=== PATIENT | male | born 1965 | race Caucasian/White ===

== ENCOUNTER 2021-07-06 13:50 | Outpatient (CLI) | payer OTHER, SELFPAY ==
--- NOTE | ~2021-07-06 | XR_ITS ---
EXAMINATION: XR foot LT min 3V EXAM DATE: 07/06/2021 14:18 INDICATION: Pain in L foot and B/L toes,Rt Foot Worse,X1mo. TECHNIQUE: Left foot dorsoplantar, lateral and oblique projections obtained and reviewed. Comparison is made to prior examination from 10/27/2018. FINDINGS: Left metatarsal bones unremarkable. There are no bony erosions identified. There is mild 1st metatarsophalangeal joint primary osteoarthritis. Small posterior calcaneal spur. There are no acute fractures or dislocations identified. There is no subcutaneous gas. The soft tissue is unrema rkable. There are no radiopaque foreign bodies. IMPRESSION: Mild left 1st MTP osteoarthritis. Reviewed, dictated and finalized at location A. ERCIAL ENGINEER
--- NOTE | ~2021-07-06 | XR_ITS ---
EXAMINATION: XR foot RT min 3V EXAM DATE: 07/06/2021 14:18 INDICATION: Pain in L foot and B/L toes,Rt Foot Worse,X1mo TECHNIQUE: Right foot dorsoplantar, lateral and oblique projections obtained and reviewed. Correlati on is made to contralateral foot same date. Comparison is made to prior examination from 05/18/2013. FINDINGS: Right metatarsal bones unremarkable. There are no bony erosions identified. There are no a cute fractures or dislocations identified. There is no subcutaneous gas. The soft tissue is unremar kable. There are no radiopaque foreign bodies. IMPRESSION: 1. Unremarkable right foot exam. Reviewed, dictated and finalized at location A. DIVER
== END 2021-07-06 13:51 | disposition home or self-care (01) ==
PROVIDERS: PCP Family Medicine; Visit Provider Family Medicine
DX: M79.674 Pain in right toe(s) (principal); M79.675 Pain in left toe(s)
CPT/HCPCS: 73630

== ENCOUNTER 2021-08-19 12:47 | Outpatient (CLI) | payer OTHER, SELFPAY ==
--- NOTE | ~2021-08-19 | US_ITS ---
EXAMINATION: US aorta DATE: 08/19/2021 13:14 INDICATION: Abdominal aortic aneurysm without rupture TECHNIQUE: Grayscale, color Doppler, and pulsed Doppler images of the aorta and common iliac arteries were obtained. COMPARISON: None. FINDINGS: The proximal aorta measures 3.0 cm. The mid aorta measures 3.2 cm. The distal aorta measures 3.0 cm. The right common iliac artery measures 1.4 cm. The left common iliac artery measures 1.5 cm. IMPRESSION: 1. Normal caliber abdominal aorta. Reviewed, dictated and finalized at location B.
== END 2021-08-19 12:48 | disposition home or self-care (01) ==
LOC: CHSIMG 12:51
PROVIDERS: PCP Family Medicine; Visit Provider Family Medicine
DX: I71.4 Abdominal aortic aneurysm, without rupture (principal)
CPT/HCPCS: 76775

== ENCOUNTER 2021-10-19 16:31 | Emergency (ER) | payer MEDICARE, MEDICAID, SELFPAY ==
[2021-10-19] VITALS (45 sets, daily range): BP systolic 125–166; BP diastolic 78–106; PULSE 69–102; RESP 10–20; TEMP 36.2; O2SAT 94–100
--- NOTE | ~2021-10-19 | CT_ITS ---
EXAMINATION:CT diagnostic chest wo con DATE: 10/19/2021 19:53 INDICATION: Posterior chest pain. Shortness of breath. TECHNIQUE: Computed tomography (CT) of the chest was performed without intravenous contrast. Automate d exposure control and iterative reconstruction technique were employed. The dose-length product (DLP ) was 259.51 mGy-cm. COMPARISON: None. FINDINGS: A calcified left lung nodule is consistent with old granulomatous disease. No pleural effus ion. The heart size is normal. There are coronary artery calcifications. No pericardial effusion. The re is ectasia of ascending aorta measuring 4.3 cm. There is diffuse hepatic steatosis. The gallbladde r is distended. There is mild thoracic spondylosis. There is mild chronic anterior wedging of 2 midth oracic vertebral bodies. IMPRESSION: 1. Gallbladder distention, which may be seen with fasting. Correlate with physical exam to exclude ac pratibha cholecystitis. 2. Ectasia of ascending aorta measuring 4.3 cm. Reviewed, dictated and finalized at location E. IMPRESSION: 1. Gallbladder distention, which may be seen with fasting. Correlate with physi praveen exam to exclude acute cholecystitis. 2. Ectasia of ascending aorta measuring 4.3 cm.
--- NOTE | ~2021-10-19 | XR_ITS ---
XR chest 1V portable DATE: 10/19/2021 17:21 INDICATION: Shortness of breath TECHNIQUE: Portable upright AP chest on 10/19/2021 at 1726 hours COMPARISON: 07/30/2016 PA and lateral chest FINDINGS: Borderline heart size. Is aortic tortuosity. No hilar or mediastinal enlargement. No pulmonary infiltrate or consolidation, pleural effusion or pulmonary vascular congestion or pneumo thorax is detected. IMPRESSION: No active pulmonary disease Reviewed, dictated and finalized at location A. IMPRESSION: No active pulmonary disease
--- NOTE | 2021-10-19 16:49 | ED.CHESTPAIN ---
HPI - Chest Pain General Chief Complaint: Shortness of Breath/Dyspnea Stated Complaint: trouble breathing Time Seen by Provider: 10/19/21 16:49 Source: patient Mode of arrival: ambulatory Limitations: no limitations History of Present Illness HPI narrative: 56-year-old male with a history hypertension ground, HASEEB, MARLEE, CVA, central pain syndrome, GERD, cervical radiculopathy presented to his doctor's office for -- left-sided chest/ left posterior chest pain since last night. Pain worse on deep breathing. Patient has a history of negative cardiac catheterization 2 years ago. -- shortness of breath since last night -- chronic right-sided pain he was transferred from the doctor's office to the ER further management. MD complaint: chest pain Onset (ago): day(s) ( Started last night) Timing of current episode: episodic Prior episodes: No Onset: during rest Pain location: left chest Pain radiation: none Severity: moderate Quality: aching Relieving factors: nothing Exacerbating factors: inspiration Treatment prior to arrival: none Risk Factors Coronary artery disease risk factors: hypertension Thoracic aortic dissection risk factors: longstanding hypertension Related Data Home Medications Medication Instructions Recorded Confirmed Advair Diskus 1 puff PO BID 10/19/21 10/19/21 allopurinol 300 mg tablet 1 tablet PO DAILY 10/19/21 10/19/21 alprazolam 0.5 mg tablet 1 tablet PO TID PRN Anxiety 10/19/21 10/19/21 atenolol 100 mg tablet 1 tablet PO DAILY 10/19/21 10/19/21 carbamazepine 400 mg 400 mg PO BID 10/19/21 10/19/21 tablet,extended release,12 hr cholecalciferol (vitamin D3) 25 25 mcg PO BID 10/19/21 10/19/21 mcg (1,000 unit) capsule clopidogrel 75 mg tablet 1 tablet PO DAILY 10/19/21 10/19/21 cyanocobalamin (vitamin B-12) 2,500 mcg PO DAILY 10/19/21 10/19/21 2,000 mcg tablet duloxetine 30 mg capsule,delayed 30 mg PO BID 10/19/21 10/19/21 release sprinkle hydrochlorothiazide 25 mg tablet 1 tablet PO DAILY 10/19/21 10/19/21 hydrocodone 7.5 mg-acetaminophen 1 - 2 tablet PO Q4-6H PRN Pain 10/19/21 10/19/21 325 mg tablet minoxidil 10 mg tablet 2 tablet PO BID 10/19/21 10/19/21 nortriptyline 50 mg capsule 100 mg PO HS 10/19/21 10/19/21 oxycodone 80 mg tablet,crush 80 mg PO Q12H 10/19/21 10/19/21 resistant,extended release 12 hr pantoprazole 40 mg tablet,delayed 1 tablet PO DAILY 10/19/21 10/19/21 release rosuvastatin 20 mg tablet 1 tablet PO HS 10/19/21 10/19/21 sildenafil 100 mg tablet 100 mg PO DAILY PRN erectile 10/19/21 10/19/21 disfunction triamcinolone acetonide 0.1 % 1 applic topical BID 10/19/21 10/19/21 topical cream Allergies Allergy/AdvReac Type Severity Reaction Status Date / Time amoxicillin Allergy Unknown HANDS Verified 10/19/21 17:30 SWELL AND BECOME REDDENED clavulanic acid Allergy Unknown HANDS Verified 10/19/21 17:30 SWELL AND BECOME REDDENED Review of Systems Review of Systems: All systems reviewed & are unremarkable except as noted in HPI and below Constitutional: Constitutional: Reports as per HPI and Reports no additional constitutional complaints Eyes: Eyes: Reports as per HPI and Reports no additional eye complaints ENT: Reports system reviewed and no additional complaints, except as documented and Reports as per HPI Cardiovascular: Cardiovascular: Reports as per HPI Respiratory: Respiratory: Reports as per HPI and Reports no additional respiratory complaints Comments: left-sided chest wall pain including the front and the back of the chest Gastrointestinal: Gastrointestinal: Reports as per HPI and Reports no additional gastrointestinal complaints Genitourinary: Genitourinary: Reports no additional male genitourinary complaints and Reports as per HPI Musculoskeletal: Musculoskeletal: Reports no additional musculoskeletal complaints and Reports as per HPI Integumentary/Breasts: Skin/Breast: Reports system reviewed and no additional
--- NOTE | 2021-10-19 16:50 | ECG_ITS ---
Measurements Intervals [place] Rate: 74 P: -1 KS: 197 QRS: 44 QRSD: 93 T: 22 QT: 401 QTc: 447 Interpretive Statements SINUS RHYTHM SEPTAL MYOCARDIAL INFARCTION , OF INDETERMINATE AGE Electronically Signed On 10-20-2021 11:09:35 CDT by Mikhail Cheung M.D.
[2021-10-19] MEDS: ASPIRIN 81 MG CHEWABLE TABLET 324 MG PO (17:21)
[2021-10-19] MEDS: HYDROcodone/acetaminophen (*CRX) 5-325 MG TABLET 1 TAB PO (17:21)
[2021-10-19 17:33] LABS: Add Urine Microscopic? YES; Appearance Urine Clear (Clear); Bilirubin Urine Negative (Negative); Blood Urine Negative (Negative); Color Urine Light Yellow (Yellow); Glucose Urine UA Negative (Negative); Ketones Urine Negative (Negative); Leukocyte Esterase Ur Negative (Negative); Nitrate Urine Negative (Negative); Protein Urine 2+ (Negative); Urobilinogen Urine 0.2 mg/dL (0.2-1.0); pH Urine 7.5 (5.0-8.0)
[2021-10-19 17:33] LABS: Basophils Absolute Auto 0.01 K/mm3 (0.00-0.10); Basophils Percent Auto 0.2 % (0.0-1.0); Eosinophils Absolute Auto 0.01 K/mm3 (0.02-0.50); Eosinophils Percent Auto 0.2 % (1.0-6.0); Hematocrit 39.4 % (40.0-54.0); Hemoglobin 13.9 g/dL (14.0-18.0); Immature Granulocyte Absolute 0.01 K/mm3 (0.00-0.00); Immature Granulocyte Percent A 0.2 % (0.0-0.0); Lymphocytes Absolute Auto 1.28 K/mm3 (1.10-4.50); Lymphocytes Percent Auto 25.7 % (18.0-42.0); Mean Corpuscular HGB Conc 35.3 g/dL (32.0-36.0); Mean Corpuscular Hemoglobin 31.8 pg (27.0-31.0); Mean Corpuscular Volume 90.2 fL (78.0-102.0); Mean Platelet Volume 9.3 fl (8.7-11.0); Monocytes Absolute Auto 0.33 K/mm3 (0.10-0.90); Monocytes Percent Auto 6.6 % (2.0-11.0); Neutrophils Absolute Auto 3.4 K/mm3 (1.7-7.2); Neutrophils Percent Auto 67.1 % (50.0-70.0); Platelet Count Result 217 K/mm3 (150-420); Red Blood Count 4.37 M/mm3 (4.70-6.10); Red Cell Distribution Width 12.4 % (11.6-14.4)
[2021-10-19 17:45] LABS: Prothrombin Time 10.3 Seconds (9.50-12.10)
[2021-10-19 17:46] LABS: Bacteria Urine Trace /hpf; RBC Urine 0-2 /hpf (0-2); Squamous Epithelial Cell Urine Rare /hpf (Few); WBC Urine 0-3 /hpf (0-3)
[2021-10-19 17:51] LABS: Lactic Acid Reflex 2.1 mmol/L (0.4-2.0)
[2021-10-19 18:01] LABS: Alanine Aminotransferase 48 U/L (16-63); Albumin Level 3.9 g/dL (3.4-5.0); Alkaline Phosphatase 68 U/L (46-116); Anion Gap 8 mmol/L (8-16); Aspartate Amino Transferase 31 U/L (15-37); Bilirubin,Total 0.5 mg/dL (0.00-1.00); Blood Urea Nitrogen 16 mg/dL (7-18); Calcium 9.5 mg/dL (8.5-10.1); Carbon Dioxide 30 mmol/L (21-32); Chloride 101 mmol/L (98-108); Estimated CRCL calculation 58 ml/min; Estimated Glomerular Filt Rate 55; Glucose 141 mg/dL (70-99); NT Pro B Type Natriuretic Pept 97 pg/mL (0-125); Osmolality Calculated 291 mOsm/kg (285-295); Sodium 139 mmol/L (136-145); Total Protein 8.4 g/dL (6.4-8.2); Uric Acid 4.4 mg/dL (3.5-7.2)
[2021-10-19 18:02] LABS: Lipase 85 U/L (73-393); Phosphorus 1.3 mg/dL (2.6-4.7); Thyroid Stimulating Hormone 1.34 uIU/mL (0.36-3.74); Troponin I 7.6 ng/L (0.00-60.4)
[2021-10-19] MEDS: MORPHINE SULFATE (*CRX) 2 MG/ML INJ IV PUSH (18:23)
[2021-10-19] MEDS: ONDANSETRON INJ 4 MG/2 ML VIAL IV PUSH (18:24)
[2021-10-19] MEDS: POTASSIUM/PHOSPHORUS/SODIUM 1.5 GM PACKET 2 PACKET PO ×2 (18:56→23:55)
--- NOTE | 2021-10-19 19:00 | PC.NURSE ---
Report received on arrival, pt sitting in bed, VSS, awaiting phosphate gtt for infusion.
[2021-10-19] MEDS: POTASSIUM PHOS,M-BASIC-D-BASIC 20 MMOL in SODIUM CHLORIDE 0.9% IV 250 ML 64.17 MMOL IVPB (19:32)
--- NOTE | 2021-10-19 19:50 | PC.NURSE ---
Pt back from CT, c/o some back pain at this time, pt repositioned in bed, monitor continues to showSR, VSS, gtt infusing as per order.
[2021-10-19 20:31] LABS: Reflex Lactic Acid Yes or No Add Lactic
[2021-10-19 21:09] LABS: Lactic Acid 1.2 mmol/L (0.4-2.0)
[2021-10-20 00:46] LABS: Phosphorus 4.8 mg/dL (2.6-4.7)
[2021-10-20 01:25] VITALS: BP 155/100; PULSE 81; RESP 20; TEMP 36.6; O2SAT 98
[2021-10-22 13:31] LABS: Vitamin D 25 Hydroxy 14 ng/mL (30-100)
[2021-10-24 14:08] LABS: Parathyroid Intact 135 pg/mL (14-64)
== END 2021-10-20 01:35 | disposition home or self-care (01) ==
PROVIDERS: Emergency Provider Internal Medicine Critical Care Medicine; PCP Family Medicine
DX: R07.89 Other chest pain (principal); N18.30 Chronic kidney disease, stage 3 unspecified; E83.39 Other disorders of phosphorus metabolism; I77.819 Aortic ectasia, unspecified site; G47.33 Obstructive sleep apnea (adult) (pediatric); K21.9 Gastro-esophageal reflux disease without esophagitis; M54.12 Radiculopathy, cervical region; E53.8 Deficiency of other specified B group vitamins; M54.16 Radiculopathy, lumbar region; F41.1 Generalized anxiety disorder
CPT/HCPCS: 36415; 71045; 71250; 80053; 81001; 82306; 83605; 83690; 83880; 83970; 84100; 84443; 84484; 84550; 85025; 85610; 93005; 96365; 96366; 96375; 99284; A9270; J2270; J2405; J7050

== ENCOUNTER 2022-09-16 15:22 | Outpatient (CLI) | payer MEDICARE, MEDICAID, SELFPAY ==
--- NOTE | ~2022-09-16 | XR_ITS ---
EXAM: XR shoulder RT min 2V, XR humerus RT DATE: 09/16/2022 16:18 (accession [id number]), 09/16/2022 16:17 (accession [id number]) HISTORY: ACUTE RIGHT SHOULDER PAIN SINCE LAST NIGHT. . COMPARISON: None available. FINDINGS: Normal mineralization. No fracture or dislocation. No lytic or blastic lesion. Mild glenoh umeral and AC joint osteoarthritis. No erosion or periosteal change. Soft tissues within normal limit s. IMPRESSION: No acute osseous finding in the right shoulder or humerus. Reviewed, dictated and finalized at location K. IMPRESSION: No acute osseous finding in the right shoulder or humerus.
== END 2022-09-16 15:23 | disposition home or self-care (01) ==
LOC: CHSIMG 15:24
PROVIDERS: PCP Family Medicine; Visit Provider Family Medicine
DX: M79.601 Pain in right arm (principal)
CPT/HCPCS: 73030; 73060

== ENCOUNTER 2023-06-30 14:51 | Outpatient (CLI) | payer MEDICARE, SELFPAY ==
[2023-06-30 15:05] LABS: Basophils Absolute Auto 0.01 K/mm3 (0.00-0.10); Basophils Percent Auto 0.2 % (0.0-1.0); Eosinophils Absolute Auto 0.06 K/mm3 (0.02-0.50); Hematocrit 38.8 % (40.0-54.0); Immature Granulocyte Absolute 0.02 K/mm3 (0.00-0.00); Immature Granulocyte Percent A 0.3 % (0.0-0.0); Lymphocytes Absolute Auto 1.75 K/mm3 (1.10-4.50); Lymphocytes Percent Auto 27.7 % (18.0-42.0); Mean Corpuscular HGB Conc 36.1 g/dL (32.0-36.0); Mean Corpuscular Volume 88.6 fL (78.0-102.0); Mean Platelet Volume 8.8 fl (8.7-11.0); Monocytes Absolute Auto 0.45 K/mm3 (0.10-0.90); Monocytes Percent Auto 7.1 % (2.0-11.0); Neutrophils Percent Auto 63.7 % (50.0-70.0); Platelet Count Result 234 K/mm3 (150-420); Red Blood Count 4.38 M/mm3 (4.70-6.10); Red Cell Distribution Width 12.3 % (11.6-14.4); White Blood Count 6.3 K/mm3 (4.8-10.8)
[2023-06-30 15:24] LABS: Hemoglobin A1C 6.6 % (<5.7)
[2023-06-30 15:48] LABS: Alanine Aminotransferase 46 U/L (16-63); Alkaline Phosphatase 71 U/L (46-116); Anion Gap 7 mmol/L (8-16); Aspartate Amino Transferase 38 U/L (15-37); Bilirubin,Total 0.4 mg/dL (0.00-1.00); Blood Urea Nitrogen 22 mg/dL (7-18); Calcium 9.1 mg/dL (8.5-10.1); Carbon Dioxide 34 mmol/L (21-32); Chloride 98 mmol/L (98-108); Estimated Glomerular Filt Rate 60; Glucose 176 mg/dL (70-99); Osmolality Calculated 295 mOsm/kg (285-295); Potassium 3.8 mmol/L (3.5-5.1); Sodium 139 mmol/L (136-145); Thyroid Stimulating Hormone 1.84 uIU/mL (0.36-3.74); Total Protein 7.8 g/dL (6.4-8.2); Uric Acid 4.1 mg/dL (3.5-7.2)
== END 2023-06-30 14:52 | disposition home or self-care (01) ==
LOC: CHSLAB 14:53
PROVIDERS: PCP Family Medicine; Visit Provider Family Medicine
DX: I10 Essential (primary) hypertension (principal); E11.9 Type 2 diabetes mellitus without complications; M10.00 Idiopathic gout, unspecified site
CPT/HCPCS: 36415; 80053; 83036; 84443; 84550; 85025

== ENCOUNTER 2024-12-17 16:30 | Emergency (ER) | payer MEDICARE, MEDICAID, SELFPAY ==
[2024-12-17] VITALS (12 sets, daily range): BP systolic 105–129; BP diastolic 67–99; PULSE 80–92; RESP 13–20; TEMP 36.2; O2SAT 92–100
--- OUTSIDE RECORDS SUMMARY | 2024-12-17 16:33 | XMS_ITS | Clinical Summary ---
Author Organization [facility] Address [address] [place] [address] Care Team Providers Care [employer] Converter Name Role Phone Jamil Villavicencio MD Primary Care Provide r Jamil Villavicencio MD Unavailable Sami Grossman MD Unavailable [phone] Allergies Active Allergy Reactions Criticality Noted Date Comments Amoxicillin Amoxicillin-Pot Clavulanate Rash Medium 04/08/20 15 Medications clopidogrel (PLAVIX) 75 mg tablet take 1 tablet by oral route every day 0 0 04/08/2014 Active atenolol (TENORMIN) 100 mg tablet take 1 Tablet (100MG) by oral route every day 0 10/16/2012 Active hydroCHLOROthia zide (HYDRODIURIL) 25 mg tablet take 1 tablet (25MG) by oral route every day 0 10/16/[address] (PROTONIX) 40 mg EC tablet Take 1 tablet (40 mg total) by mouth daily 12/13/2016 Active allopurinol (ZYLOPRIM) 300 mg tablet 1 tablet (300 mg total) daily 12/11/2016 Active ALPRAZolam (XANAX) 0.5 mg tablet 1 tablet (0.5 mg total) 3 (three) times a day as needed 11/26/2016 Active HYDROcodone-devan taminophen (NORCO) 7.5-325 mg per tabletIndicatio ns:Pain Take 2 tablets by mouth every 6 (six) hours as needed 1-2 tablets 11/26/2016 Active minoxidil (LONITEN) 10 mg tabletIndicatio ns:hypertension Take 2 tablets (20 mg total) by mouth 2 (two) times a day 12/05/2016 Active temazepam (RESTORIL) 30 mg capsuleIndicati ons:Insomnia Take 1 capsule (30 mg total) by mouth nightly as needed 10/29/2016 Active rosuvastatin (CRESTOR) 20 mg tablet Take 1 tablet (20 mg total) by mouth nightly at bedtime. 3 10/23/2017 Active OxyCONTIN 80 mg 12 hr abuse-deterrent tablet 10/20/2021 Active cyanocobalamin (Vitamin B-12) 1,000 mcg tablet Take 2 tablets (2,000 mcg total) by mouth daily 11/27/2021 Active ergocalciferol (VITAMIN D) 50,000 unit capsule Take 1 capsule (50,000 Units total) by mouth 2 (two) times a week 11/27/2021 Active gabapentin (NEURONTIN) 300 mg capsule Take 1 capsule (300 mg total) by mouth 3 (three) times a day 90 capsule 01/22/2022 Active amitriptyline (ELAVIL) 25 mg tablet Take by mouth nightly 12/29/2022 Active temazepam (RESTORIL) 15 mg capsule 11/29/2022 Active pregabalin (LYRICA) 25 mg capsule Take 1 capsule (25 mg total) by mouth 3 (three) times a day Active Active Problems Problem Noted Date Diagnosed Date TBI (traumatic brain injury) 01/05/2022 Subarachnoid hemorrhage 01/01/2022 Scalp laceration 01/01/2022 Temporal bone fracture 01/01/2022 Type 2 diabetes mellitus 01/01/2022 Dysphagia 01/01/2022 Pain 01/01/2022 Subdural hematoma 12/24/2021 Abdominal pain 10/23/2021 History of stroke 10/23/2021 Fatty liver 10/23/2021 Common bile duct dilatation 10/23/2021 Constipation 10/22/2021 Overview (10/26/2021): Added automatically from request for surgery [id number] Erectile dysfunction due to diseases classified elsewhere 07/10/2019 Assessment & Plan (07/10/2019 1:57 PM SEO CONSULTANT): Rx for Sildenafil sent Nocturia 07/11/2018 Assessment & Plan (07/10/2019 1:55 PM SEO CONSULTANT): Check PSA Anemia due to vitamin B12 deficiency 08/10/2017 Hypogonadism, male 12/15/2016 Assessment & Plan (07/10/2019 1:55 PM SEO CONSULTANT): Continue T replacement Assessment & Plan (01/09/2019 4:19 PM CDT): Continue T replacement rx sent. Assessment & Plan (07/11/2018 1:24 PM SEO CONSULTANT): Restart T replacement Check CBC, PSA Assessment & Plan (12/27/2017 2:02 PM CDT): Continue T replacement Check psa, cbc Assessment & Plan (06/20/2017 8:39 PM SEO CONSULTANT): Stop topical T Start depot T Assessment & Plan (12/15/2016 3:23 PM CDT): Restart Testim Check PSA , CBC Dysuria 12/15/2016 CVA (cerebral vascular accident) 11/06/2016 Acute UTI 11/05/2016 HTN (hypertension), benign 11/05/2016 Paresthesia of right upper and lower extremity 0 11/05/2016 TIA (transient ischemic attack) 11/05/2016 B12 deficiency 04/08/2015 Bilious vomiting with nausea Resolved Problems Problem Noted Date Diagnosed Date Resolved Date Diarrhea 01/01/2022 01/05/2022 Immunizations Immunization Administration Dates Next Due Tdap 12/24/2021 Medical History Medical History Date Comments Hypertension Stroke (HCC) H/O blood clots Gastric acidity Gout Anemia Hx Other Medical CAD Hx Other Medical CVA (Stroke) Hypertension Hypertension Hyperlipidemia Hyperlipidemia Family History Medical History Relation Name Comments Coronary artery disease Father Eyal nary artery disease; Cause of : Coronary artery disease Heart disease Father Hypertension Father Hypertension; Coronary artery disease Mother Eyal nary artery disease; Cause of : Coronary artery disease Diabetes Mother Diabetes mellit us; Heart disease Mother Hypertension Mother Hypertension; Hypertension Other 1 Family history of Hypertension; Diabetes type II Other 2 Family hist ory of Diabetes mellitus type 2; Relation Name Status Comments Father Mother Other 1 Other 2 Social History Tobacco Use Types Packs/Day Years Used Date Smoking Tobacco: Never Smokeless Tobacco: Never Alcohol Use Standard Drinks/Week Comments Yes 0 (1 standard drink = 0.6 oz pur e alcohol) AUDIT-C Answer Date Recorded Q1: How often do you have a drink containing alc ohol? Monthly or less 10/23/2021 Q2: How many drinks containi ng alcohol do you have on a typical day when you are drinking? 1 or 2 10/23/2021 Q3: How often do you have si x or more drinks on one occasion? Never 10/23/2021 PHQ-2 Answer Date Recorded PHQ-2 Total Score (If total score is 3 or more points, staff should administer the PHQ-9) 0 10/24/2021 Personal Safety Answer Date Recorded Have you ever been in or are you currently in a harmful physical or emotional relationship or is someone making you feel afraid or unsafe? Denies 07/17/2023 Sex and Gender Information Value Date Recorded Sex Assigned at Not on file Legal Sex Male 9:29 AM SEO CONSULTANT Gender Identity Not on file Sexual Orientation Not on file Obstetrics History Last Filed Vital Signs Vital Sign Reading Time Taken Comments Blood Pressure 106/71 08/19/2023 1:03 PM CDT Pulse 84 08/19/2023 1:03 PM CDT Temperature 36.8 C (98.2 F) 07/17/2023 10:58 AM SEO CONSULTANT Respiratory Rate 18 07/17/2023 10:58 AM SEO CONSULTANT Oxygen Saturation 96% 07/17/2023 10:58 AM SEO CONSULTANT Inhaled Oxygen Concentration - - Weight 93 kg (205 lb) 08/19/2023 1:03 PM CDT Height 160 cm (5' 3) 08/19/2023 1:03 PM CDT Body Mass Index 36.31 08/19/2023 1:03 PM CDT Plan of Treatment Health Maintenance Due Date Last Done Comments Albumin Creatinine Ratio, Urine 1965 Hemoglobin A1C 1965 Hepatitis C Screening 1965 Dilated Eye Exam 1965 Foot Exam 1965 Hepatitis B Screening 1982 Regular Well Visit/Exam 18-64 1982 Zoster Vaccine (1 of 2) 2014 Pneumococcal vaccine <65 (2 of 2 - PCV) 02/18/2015 02/18/2014 Prostate Cancer Screening-PSA 07/15/2021, 09/01/2018, 12/15/2016 Depression Screening 10/22/2022 10/22/2021, 07/10/2019, 01/09/2019, Additional history exists eGFR 07/16/2024 07/17/2023, 12/14, 01/01/2022, Additional history exists Lipid Panel 08/05/2024 08/06/2023, 12/14, 04/16/2014 Influenza Vaccine (#1) 2025 9, 03/01/2018, 03/30/2017, Additional history exists Colon Cancer Screening-Colonoscopy 10/27/2031 10/26/2021 DTaP/Tdap/Td Vaccine (3 - Td or Tdap) 12/25/2031 12/24/2021, 12/19/2013, 02/15/2006 Colon Cancer Screening-CT Colonography Discontinued 10/26/2021 Colon Cancer Screening-DNA Stool Discontinued 10/27/19 Colon Cancer Screening-FIT Discontinued 10/26/2021 Colon Cancer Screening-Sigmoidoscopy Discontinued 10/26/2021 Procedures Procedure Name Priority Date/Time Associated Diagnosis Comments EGFR STAT 07/17/2023 12:09 PM SEO CONSULTANT LIPID PANEL Routine 12/25/2021 5:08 AM CDT COLONOSCOPY 10/26/2021 2:39 PM CDT PSA SCREEN Routine 07/16/2019 12:58 PM SEO CONSULTANT Nocturia from Last 3 Months or Most Recently Relevant to Health Maintenance Results * eGFR (07/17/2023 12:09 PM SEO CONSULTANT) eGFR 74 mL/min/1. 73 m2 JOANNE CHAMBERLAIN (JEFF) Comment: Interpretive Data Reference Interval Normal >/= 90 mL/min/1.73m2 Mildly decreased* 60 - 89 mL/min/1.73m2 Mildly to moderately decreased 45 - 59 mL/min/1.73m2 Moderately to severely decreased 30 - 44 mL/min/1.73m2 Severely decreased 15 - 29 mL/min/1.73m2 Kidney Failure < 15 mL/min/1.73m2 *Relative to young adult level Estimated glomerular filtration rate is determined by the 2020 CKD-EPI equation recommended by the National Kidney Foundation (A Unifying Approach to GFR Estimation: Recommendations of the NKF-ASK Task Force on Reassessing the Inclusion of Race in Diagnosing Kidney Disease, JASN 2020). The CKD-EPI equation should not be used for patients with unstable renal function and has not been validated in children and those over 70. Current interpretive data was last reviewed 2021. Blood 07/17/2023 12:0 9 PM SEO CONSULTANT 07/17/2023 12:18 PM SEO CONSULTANT us Flako Cagle MD LAB BLOOD ORDERABLES Final Result Performing Organization Address City/State/[facility] Co de Phone Number [facility] ([facility] [address] [facility] [place] [address] * Lipid panel (12/25/2021 5:08 AM CDT) Cholesterol 137 30 - 199 mg/dL JOANNE ZHANG Comment: Interpretive Data Ages < or = 19 years Acceptable: <170 mg/dL Borderline high: 170-199 mg/dL High: >or= 200 mg/dL Ages > or = 20 years Desirable: <200 mg/dL Borderline high: 200-239 mg/dL High: >or= 240 mg/dL Literature References: 1. Expert Panel on Integrated Guidelines for Cardiovascular Health and Risk Reduction in Children and Adolescents. Pediatrics 2011;128:S213 2. NCEP Expert Panel. Circulation 2004;110:227 Current Interpretive Data was last revised on 2018. Triglycerides 129 <=149 mg/dL JOANNE ZHANG Comment: Interpretive Data Ages < or = 9 years Acceptable: <75 mg/dL Borderline high: 75-99 mg/dL High: >or= 100 mg/dL Ages 10 to 20 years Acceptable: <90 mg/dL Borderline high: 90-129 mg/dL High: >or= 130 mg/dL Ages > or = 20 years Desirable: <150 mg/dL Borderline high: 150-199 mg/dL High: 200-499 mg/dL Very high: >or= 499 mg/dL Literature References: 1. Expert Panel on Integrated Guidelines for Cardiovascular Health and Risk Reduction in Children and Adolescents. Pediatrics 2011;128:S213 2. NCEP Expert Panel. Circulation 2004;110:227 Current Interpretive Data was last revised on 2018. HDL 42 >=40 mg/dL [facility] Comment: Interpretive Data Ages < or = 19 years Acceptable: >45 mg/dL Borderline low: 40-45 mg/dL Low: <40 mg/dL Ages > or = 20 years Desirable: >or= 60 mg/dL Low: <40 mg/dL Literature References: 1. Expert Panel on Integrated Guidelines for Cardiovascular Health and Risk Reduction in Children and Adolescents. Pediatrics 2011;128:S213 2. NCEP Expert Panel. Circulation 2004;110:227 Current Interpretive Data was last revised on 2018. LDL, calculated 69 <=129 mg/dL [facility] Comment: Interpretive Data Ages < or = 19 years Acceptable: <110 mg/dL Borderline high: 110-129 mg/dL High: >or= 130 mg/dL Ages > or = 20 years Optimal: <100 mg/dL Near optimal: 100-129 mg/dL Borderline high: 130-159 mg/dL High: >160 mg/dL Literature References: 1. Expert Panel on Integrated Guidelines for Cardiovascular Health and Risk Reduction in Children and Adolescents. Pediatrics 2011;128:S213 2. NCEP Expert Panel. Circulation 2003;110:227 Current Interpretive Data was last revised on 2018. Non-HDL Cholesterol 95 mg/dL [facility] Comment: Interpretive Data Ages < or = 19 years Acceptable: <120 mg/dL Borderline high: 120-144 mg/dL High: >145 mg/dL Ages > or = 20 years When triglycerides are >200 mg/dL, Non-HDL cholesterol is a secondary target of therapy with treatment goals that are 30 mg/dL greater than the LDL cholesterol target. Literature References: 1. Expert Panel on Integrated Guidelines for Cardiovascular Health and Risk Reduction in Children and Adolescents. Pediatrics 2011;128:S213 2. NCEP Expert Panel. Circulation 2003;110:227 Current Interpretive Data was last revised on 2018. Chol/HDL ratio 3 [facility] Blood 12/25/2021 5:08 AM CDT 12/25/2021 5:29 AM CDT us Elisa Faust MD LAB BLOOD ORDERABLES F inal Result [facility] Department [place] [address] * COLONOSCOPY (10/26/2021 2:39 PM CDT) Anatomical Region Laterality Modality Other Narrative Procedure Note Sami Grossman MD - 10/26/2021 2:39 PM CDT [facility] Patient Name: Bar Young Procedure Date: 10/26/2021 2:39 PM Date of : 1965 Admit Type: Inpatient Age: 56 Gender: Male Attending MD: Sami Grossman M.D. Room: [facility] ENDOSCOPY ROOM 1 Note Status: Finalized Patient Profile: This is a 56 year old male. Patient admitted with lower abdominal pain mainly in the right lower quadrant area and constipation. Imaging were nonconclusive although some gallstones noted. Colonoscopy for evaluation. Patient has chronicback pain and dependence and narcotic painmedications. Procedure: Colonoscopy Indications: This is the patient's first colonoscopy, Abdominal pain in the right lower quadrant Referring MD: Jamil Villavicencio M.D. Providers: Sami Grossman M.D. Impression: - Two 4 to 5 mm polyps in the cecum, removed with a jumbo cold forceps. Resected and retrieved. - Small lipoma in the hepatic flexure. - One 6 mm polyp in the descending colon, removedwith a jumbo cold forceps. Resected and retrieved. - One 9 mm polyp in the rectum, removed with a cold snare. Resected and retrieved. - Internal hemorrhoids. Recommendation: - Await pathology results. - Repeat colonoscopy in 3 - 5 years for screening purposes. - Continue present medications. - No pathology noted to explain the patient'ssymptoms of pain. Likely neuropathic pain. Advance diet. Medicines: Monitored Anesthesia Care Complications: No immediate complications. Estimated Blood Loss: Estimated blood loss: none. Procedure: Pre-Anesthesia Assessment: - Prior to the procedure, a History and Physicalwas performed, and patient medications and allergieswere reviewed. The patient's tolerance of previous anesthesia was also reviewed. The risks andbenefits of the procedure and the sedation options and risks were discussed with the patient. All questions were answered, and informed consent was obtained. Prior Anticoagulants: The patient has taken noanticoagulant or antiplatelet agents. ASA Grade Assessment: III -A patient with severe systemic disease. Afterreviewing the risks and benefits, the patient was deemed in satisfactory condition to undergo the procedure. The benefits, risks and alternatives of theprocedure and sedation were discussed and informed consentwas obtained. All questions were answered. Please referto the signed informed consent document in the medical record. The bowel preparation used was Miralax via split dose instruction. The bowel preparation usedwas bisacodyl tablets via split dose instruction. The bowel preparation used was magnesium citrate via single dose instruction. The scope was passed under direct vision. The Pediatric Colonoscope [id number] was introduced through the anus andadvanced to the the cecum, identified by appendiceal orifice and ileocecal valve. The quality of the bowel preparation was good. Bowel prep was administered using a split dose. Findings: The perianal and digital rectal examinations were normal. The appendiceal orifice appeared normal. Two sessile polyps were found in the cecum. The polyps were 4 to 5 mmin size. These polyps were removed with a jumbo cold forceps. Resectionand retrieval were complete. The transverse colon and ascending colon appeared normal. Smalllipoma noted in the hepatic flexure area. The sigmoid colon was normal. A 6 mm polyp was found in the descending colon. The polyp was semi-sessile. The polyp was removed with a jumbo cold forceps.Resection and retrieval were complete. A 9 mm polyp was found in the rectum. The polyp was sessile. Thepolyp was removed with a cold snare. Resection and retrieval werecomplete. Internal hemorrhoids were found during retroflexion. The hemorrhoids were medium-sized. Electronically signed by Sami Grossman M.D. Sami Grossman M.D. 10/26/2021 4:43:32 PM Number of Addenda: 0 Note Initiated On: 10/26/2021 2:39 PM Procedure Code(s): --- Professional --- 56474, Colonoscopy, flexible; with removal of tumor(s), polyp(s), or other lesion(s) by snare technique 99742, 59, Colonoscopy, flexible; with biopsy, single or multiple Diagnosis Code(s): --- Professional --- K64.8, Other hemorrhoids D12.0, Benign neoplasm of cecum D12.4, Benign neoplasm of descending colon D12.8, Benign neoplasm of rectum R10.31, Right lower quadrant pain CPT copyright 2020 [employer]. All rights reserved. The codes documented in this report are preliminary and upon boiler/chiller operator reviewmay be revised to meet current compliance requirements. Recognized by the [place] [employer] for promoting quality in endoscopy us Sami Grossman MD ENDOSCOPY PROCEDURES Final Result * PSA screen (07/16/2019 12:58 PM SEO CONSULTANT) PSA 0.9 < OR = 4.0 ng/mL [facility] Comment: The total PSA value from this assay system is standardized against the WHO standard. The test result will be approximately 20% lower when compared to the equimolar-standardized total PSA (Lois Hinton). Comparison of serial PSA results should be interpreted with this fact in mind. This test was performed using the Siemens chemiluminescent method. Values obtained from different assay methods cannot be used interchangeably. PSA levels, regardless of value, should not be interpreted as absolute evidence of the presence or absence of disease. Blood specimen (specimen) 07/16/2019 12:58 PM SEO CONSULTANT 07/16/2019 12:59 PM SEO CONSULTANT Narrative [facility] - 07/17/2019 6:07 AM SEO CONSULTANT FASTING:NO FASTING: NO Resulting Agency Comment Performing Organization Information: Site ID: [id number] Name: [facility] Address: [address] [place] [address] Director: Paco Gutierres D.O., MPH us Andi Rudd MD LAB BLOOD ORDERABLES Final Resul t [facility] from Last 3 Months or Most Recently Relevant to Health Maintenance Insurance MEDICARE [place] MEDICARE [facility] MEDICARE IDPA Advance Directives For more information, please contact: [phone] * Full Code (Latest Code Status on File) Date Activated Date Inactivated Comments 12/25/2021 1:48 AM 01/22/2022 3:28 PM * Full Code Date Activated Date Inactivated Comments 10/26/2021 1:55 PM 10/26/2021 10:32 PM * Full Code Date Activated Date Inactivated Comments 10/24/2021 8:01 AM 10/26/2021 1:55 PM * Full Code Date Activated Date Inactivated Comments 10/23/2021 5:30 AM 10/24/2021 8:01 AM Care Teams [employer] Converter Relationship Specialty Start Date End Date Jamil Villavicencio MD [address] [place] [address] PCP - General 10/19/16 Jamil Villavicencio MD [address] [place] [address] 10/19/16 Sami Grossman MD [address] [place] [address] Consulting Physician Gastroenterology 10/26/21
--- OUTSIDE RECORDS SUMMARY | 2024-12-17 16:33 | XMS_ITS | Referral Summary ---
Author Organization [facility] Address [address] [place] [address] Care Team Providers Care Lathe Machine Operator Name Role Phone Jamil Villavicencio MD Primary Care Provide r Jamil Villavicencio MD Unavailable Sami Grossman MD Unavailable [phone] Allergies Active Allergy Reactions Criticality Noted Date [...] (10/26/2021): Added automatically from request for surgery [id number] Erectile dysfunction due to diseases classified elsewhere 07/10/2019 Assessment & Plan (07/10/2019 1:57 PM INTERNATIONAL EDITORIAL PRODUCER): Rx for Sildenafil sent Nocturia 07/11/2018 Assessment & Plan (07/10/2019 1:55 PM INTERNATIONAL EDITORIAL PRODUCER): Check PSA Anemia due to vitamin B12 deficiency 08/10/2017 Hypogonadism, male 12/15/2016 Assessment & Plan (07/10/2019 1:55 PM INTERNATIONAL EDITORIAL PRODUCER): Continue T replacement Assessment & Plan (01/09/2019 4:19 PM CDT): Continue T replacement rx sent. Assessment & Plan (07/11/2018 1:24 PM INTERNATIONAL EDITORIAL PRODUCER): Restart T replacement Check CBC, PSA Assessment & Plan (12/27/2017 2:02 PM CDT): Continue T replacement Check psa, cbc Assessment & Plan (06/20/2017 8:39 PM INTERNATIONAL EDITORIAL PRODUCER): Stop topical T Start depot T Assessment [...] Immunization Administration Dates Next Due Tdap 12/24/2021 Social History Tobacco Use Types Packs/Day Years [...] on file Legal Sex Male 9:29 AM INTERNATIONAL EDITORIAL PRODUCER Gender Identity Not on file Sexual Orientation Not on file Last Filed Vital Signs Vital Sign Reading Time Taken Comments Blood Pressure 106/71 08/19/2023 1:03 PM CDT Pulse 84 08/19/2023 1:03 PM CDT Temperature 36.8 C (98.2 F) 07/17/2023 10:58 AM INTERNATIONAL EDITORIAL PRODUCER Respiratory Rate 18 07/17/2023 10:58 AM INTERNATIONAL EDITORIAL PRODUCER Oxygen Saturation 96% 07/17/2023 10:58 AM INTERNATIONAL EDITORIAL PRODUCER Inhaled Oxygen Concentration - - Weight 93 kg (205 lb) 08/19/2023 1:03 PM CDT Height 160 cm (5' 3) 08/19/2023 1:03 PM CDT Body Mass Index 36.31 08/19/2023 1:03 PM CDT Plan of Treatment Not on file Procedures Procedure Name Priority Date/Time Associated Diagnosis Comments EGFR STAT 07/17/2023 12:09 PM INTERNATIONAL EDITORIAL PRODUCER LIPID PANEL Routine 12/25/2021 5:08 AM CDT COLONOSCOPY 10/26/2021 2:39 PM CDT PSA SCREEN Routine 07/16/2019 12:58 PM INTERNATIONAL EDITORIAL PRODUCER Nocturia from Last 3 Months or Most Recently Relevant to Health Maintenance Results * eGFR (07/17/2023 12:09 PM INTERNATIONAL EDITORIAL PRODUCER) eGFR 74 mL/min/1. 73 m2 [facility] [...] reviewed 2021. Blood 07/17/2023 12:0 9 PM INTERNATIONAL EDITORIAL PRODUCER 07/17/2023 12:18 PM INTERNATIONAL EDITORIAL PRODUCER us Flako Cagle MD LAB BLOOD ORDERABLES Final Result Performing Organization Address City/State/[facility] Co de Phone Number [facility] 1 [facility] Department [place] [address] * Lipid panel (12/25/2021 5:08 AM CDT) [...] last revised on 2018. Chol/HDL ratio 3 [facility] Blood 12/25/2021 5:08 AM CDT 12/25/2021 5:29 AM CDT us Elisa Faust MD LAB BLOOD ORDERABLES F inal Result [facility] One [facility] Department [place] [address] * COLONOSCOPY (10/26/2021 2:39 PM CDT) Anatomical Region Laterality Modality Other Narrative Procedure Note Saim Grossman MD - 10/26/2021 2:39 PM CDT [facility] Patient Name: Bar Young Procedure Date: 10/26/2021 2:39 PM Date of : 1965 Admit Type: Inpatient Age: 56 Gender: Male Attending MD: Sami Grossman M.D. Room: [facility] 1 Note Status: Finalized Patient [...] under direct vision. The Pediatric Colonoscope [id number]-[id number] was introduced through the anus andadvanced to [...] 2:39 PM Procedure Code(s): --- Professional --- 56704, Colonoscopy, flexible; with removal of tumor(s), polyp(s), or other lesion(s) by snare technique 44412, 59, Colonoscopy, flexible; with biopsy, single or multiple Diagnosis Code(s): --- Professional --- K64.8, Other hemorrhoids D12.0, Benign neoplasm of cecum D12.4, Benign neoplasm of descending colon D12.8, Benign neoplasm of rectum R10.31, Right lower quadrant pain CPT copyright 2020 [employer]. All rights reserved. The codes documented in this report are preliminary and upon fur buyer reviewmay be revised to meet current compliance requirements. Recognized by the [employer] for promoting quality in endoscopy us Sami Grossman MD ENDOSCOPY PROCEDURES Final Result * PSA screen (07/16/2019 12:58 PM INTERNATIONAL EDITORIAL PRODUCER) PSA 0.9 < OR = 4.0 ng/mL CHIDI YUSUF Comment: The total PSA value from this assay system is standardized against the WHO standard. The test result will be approximately 20% lower when compared to the equimolar-standardized total PSA (Lois Moro). Comparison of serial PSA results should be interpreted with this fact in mind. This test was performed using the Siemens chemiluminescent method. Values obtained from different assay methods cannot be used interchangeably. PSA levels, regardless of value, should not be interpreted as absolute evidence of the presence or absence of disease. Blood specimen (specimen) 07/16/2019 12:58 PM INTERNATIONAL EDITORIAL PRODUCER 07/16/2019 12:59 PM INTERNATIONAL EDITORIAL PRODUCER Narrative [facility] - 07/17/2019 6:07 AM INTERNATIONAL EDITORIAL PRODUCER FASTING:NO FASTING: NO Resulting Agency Comment Performing Organization Information: Site ID: [id number] Name: [facility] Simpson Address: [address] [place] [address] Director: Paco Gutierres D.O., MPH us Andi Rudd MD LAB BLOOD ORDERABLES Final Resul t [facility] Shelley from Last 3 Months or Most Recently Relevant to Health Maintenance Insurance MEDICARE [facility] MEDICARE [facility] MEDICARE IDPA Advance Directives For more information, please contact: [phone] * Full Code (Latest Code Status on File) Date Activated Date Inactivated Comments 12/25/2021 1:48 AM 01/22/2022 3:28 PM * Full Code Date Activated Date Inactivated Comments 10/26/2021 1:55 PM 10/26/2021 10:32 PM * Full Code Date Activated Date Inactivated Comments 10/24/2021 8:01 AM 10/26/2021 1:55 PM * Full Code Date Activated Date Inactivated Comments 10/23/2021 5:30 AM 10/24/2021 8:01 AM Care Teams Lathe Machine Operator Relationship Specialty Start Date End Date Jamil Villavicencio MD [address] [place] [address] PCP - General 10/19/16 Jamil Villavicencio MD [address] [place] [address] 10/19/16 Sami Grossman MD [address] [place] [address] Consulting Physician Gastroenterology 10/26/21
--- OUTSIDE RECORDS SUMMARY | 2024-12-17 16:33 | XMS_ITS | Encounter Summary ---
Author Organization [facility] Address [address] [place] [address] Phone Care Team Providers Care Boat And Plant Utility Supervisor Name Role Phone Jamil Villavicencio MD Primary Care Provider [phone] Maulik Campos MD Unavailable [phone] Stephen Larsen MD Unavailable Susan Russell APRN, AUTOMATIC LUMP MAKING MACHINE TENDER Unavailable + [phone] Encounter Details Date Type Department Care Team (Latest Contact Info) Description 09/12/2023 Transcribe Orders [facility] Preop/Pacu II [address] [place] [address] Rojelio Brewster MD [address] [place], [place] [id number] Pre-op testing (Primary Dx) Social History Tobacco Use Types Packs/Day Years Used Date Smoking Tobacco: Former Cigarettes Smokeless Tobacco: Never Comments:QUIT IN HIGH SCHOOL Alcohol Use Standard Drinks/Week Comments Yes 0 (1 standard drink = 0.6 oz pur e alcohol) [facility] Utilities Answer Date Recorded In the past 12 months has [employer], gas, oil, or water [employer] threatened to shut off services in your home? No 08/05/2023 Hunger Vital Sign Answer Date Recorded Within the past 12 months, y ou worried that your food would run out before you got the money to buy more. Never true 08/05/19 24 Within the past 12 months, t he food you bought just didn't last and you didn't have money to get more. Never true 08/05/2023 PRAPARE - Transportation Answer Date Re corded In the past 12 months, has l ack of transportation kept you from medical appointments or from getting medications? No 07/15 In the past 12 months, has l ack of transportation kept you from meetings, work, or from getting things needed for daily living? No 08/05/2023 Housing Stability Vital Sign Answer David e Recorded In the last 12 months, was t here a time when you were not able to pay the mortgage or rent on time? No 08/05/2023 In the last 12 months, how many places have you lived? 1 08/05/2023 In the last 12 months, was t here a time when you did not have a steady place to sleep or slept in a longterm (including now)? No 08/05/2023 Sexually Active Control Partners Comments Yes Female Sex and Gender Information Value Date Recorded Sex Assigned at Not on file Legal Sex Male 12:10 AM CDT Gender Identity Not on file Sexual Orientation Not on file documented as of this encounter Plan of Treatment Upcoming Encounters Date Type Department Care Team (Late st Contact Info) Description 12/19/2024 2:00 PM CDT EMG [facility] [address] [place] [address] Provider, Not On File Evette Jimenez APRN, BLUE LEATHER SETTER [address] [place] [address] Discharge Disposition: Discharged to home or Selfcare 01/01/2025 3:00 PM CDT Office Visit [facility] - Neurology - [address] [place] [address] Susan Russell APRN, AUTOMATIC LUMP MAKING MACHINE TENDER [address] [place] [address] 03/12/2025 2:30 PM CDT Office Visit [facility] - Endocrinology - [place] [address] [place] [address] Stephen Larsen MD [address] [phone] documented as of this encounter Results * TYPE & SCREEN (CROSSMATCH CONVERTIBLE) (09/19/2023 2:35 PM CDT) ABO TYPING A 09/19/2023 4:42 PM CDT [facility] BLOOD [facility] RH Positive 09/19/2023 4:42 PM CDT [facility] ABSC Negative 09/19/2023 4:42 PM CDT [facility] Blood Venipuncture / Unknown 09/19/2023 2:35 PM CDT 09/19/2023 3:45 PM CDT Rojelio Brewster MD BLOOD BANK ORDERABLES Edited Res ult - Final [facility] BLOOD BANK [address] [place] [address] documented in this encounter Visit Diagnoses Diagnosis Pre-op testing- Primary Preoperative examination, unspecified documented in this encounter Care Teams Boat And Plant Utility Supervisor Relationship Specialty Start Date End Date Jamil Villavicencio MD [address] [place] [address] PCP - General Pediatrics 04/03/15 Maulik Campos MD [address] [place] [phone] Consulting Physician Neurology 01/28/22 Stephen Larsen MD [address] [phone] Consulting Physician Endocrinology 09/30/23 Susan Russell APRN, AUTOMATIC LUMP MAKING MACHINE TENDER [address] [place] [address] Nurse Practitioner Advanced Practice Nurse 08/27/24 documented as of this encounter
--- OUTSIDE RECORDS SUMMARY | 2024-12-17 16:33 | XMS_ITS | Encounter Summary ---
Author Organization [facility] Address [address] [facility] [facility] [place] [address] Phone Care Team Providers Care Pin Game Machine Inspector Name Role Phone Jamil Villavicencio MD Primary Care Provider [phone] Maulik Campos MD Unavailable [phone] Stephen Larsen MD Unavailable Susan Russell APRN, [facility] Unavailable + [phone] Reason for Referral * Radiology Services (Routine) - Closed Specialty Diagnoses / Procedures Referred By Warren moore Referred To Contact Radiology Diagnoses Degenerative joint disease of left knee Pre-op testing Procedures XR CHEST 2 VIEWS Rojelio Brewster MD [address] [place] [address] Phone: tel: fax: Referral ID Status Reason Start Date Expiration Date Visits Re quested Visits Authorized [id number] Closed 08/30/2023 1 1 * Radiology Services (Routine) - Closed Specialty Diagnoses / Procedures Referred By Warren moore Referred To Contact Radiology Diagnoses Degenerative joint disease of left knee Pre-op testing Procedures EKG 12 LEAD Rojelio Brewster MD [address] [place] [address] Phone: tel: fax: Referral ID Status Reason Start Date Expiration Date Visits Re quested Visits Authorized [id number] Closed 08/30/2023 1 1 Encounter Details Date Type Department Care Team (Latest Contact Info) Description 08/30/2023 Transcribe Orders [facility] Preop/Pacu II [address] [place] [address] Rojelio Brewster MD [address] [place] [address] Degenerative joint disease of left knee (Primary Dx); Pre-op testing Social History Tobacco Use Types Packs/Day Years Used Date Smoking Tobacco: Former Smokeless Tobacco: Never Alcohol Use Standard Drinks/Week Comments Yes 0 (1 standard drink = 0.6 oz pur e alcohol) 2-3 times per year [facility] Utilities Answer Date Recorded In the past 12 months has th e electric, gas, oil, or water company threatened to shut off services in your [...] place to sleep or slept in a prison (including now)? No 08/05/2023 Sexually Active Control [...] Info) Description 12/19/2024 2:00 PM CDT EMG [facility] [address] [place] [address] Provider, Not On File Evette Jimenez, SUPPORT MERCHANDISER, HARVEST WORKER [address] [address] Discharge Disposition: Discharged to home or Selfcare 01/01/2025 3:00 PM CDT Office Visit [facility] - Neurology - [address] [place] [address] Susan Russell, SUPPORT MERCHANDISER, TOOL AND DIE REPAIRER [address] [place] [address] 03/12/2025 2:30 PM CDT Office Visit [facility] - Endocrinology - [place] [address] [place] [address] Stephen Larsen MD [address] [address] documented as of this encounter Results * XR CHEST 2 VIEWS (09/12/2023 1:59 PM CDT) Anatomical Region Laterality Modality Chest N/A Digital Radiogra phy 09/13/2023 11:3 0 PM CDT Impressions 09/13/2023 11:33 PM CDT IMPRESSION: No acute cardiopulmonary abnormality. Stable mild cardiomegaly. Narrative 09/13/2023 11:33 PM CDT EXAM DESCRIPTION: XR CHEST 2 VIEWS REASON FOR STUDY: pre-op exam. left knee surgery 09/22/23. no chest complaints TECHNIQUE: 2 radiographic view(s) of the chest. COMPARISON: 11/04/2016 FINDINGS: LUNGS: No focal consolidation or pleural effusion. No pneumothorax. HEART/MEDIASTINUM: Stable mildly enlarged cardiac silhouette. LINES/TUBES: None. BONES: No acute osseous abnormality. THIS IS AN ELECTRONICALLY VERIFIED FINAL REPORT 09/13/2023 11:30 PM - Electronically signed by Calvin Acosta M.D. AG: JACKELYN Report ID: [id number] Reading Location: [id number] Procedure Note Calvin Acosta MD - 09/13/2023 EXAM DESCRIPTION: XR CHEST 2 VIEWS REASON FOR STUDY: pre-op exam. left knee surgery 09/22/23. no chest complaints TECHNIQUE: 2 radiographic view(s) of the chest. COMPARISON: 11/04/2016 FINDINGS: LUNGS: No focal consolidation or pleural effusion. No pneumothorax. HEART/MEDIASTINUM: Stable mildly enlarged cardiac silhouette. LINES/TUBES: None. BONES: No acute osseous abnormality. THIS IS AN ELECTRONICALLY VERIFIED FINAL REPORT 09/13/2023 11:30 PM - Electronically signed by Calvin Acosta M.D. AG: JACKELYN Report ID: [id number] Reading Location: [place] [address] IMPRESSION: No acute cardiopulmonary abnormality. Stable mild cardiomegaly. Rojelio Brewster MD IMG DIAGNOSTIC ORDERABLES Final Result * EKG 12 LEAD (09/09/2023 12:21 PM CDT) Ventricular Rate 79 BPM EXTERNAL EKG Atrial Rate 79 BPM EXTERNAL EKG P-R Interval 182 ms EXTERNAL EKG QRS Duration 92 ms EXTERNAL EKG Q-T Duration 410 ms EXTERNAL EKG QTC CALCULATION 470 ms EXTERNAL EKG P [place] 19 degrees EXTERNAL EKG R [place] 41 degrees EXTERNAL EKG T [place] 51 degrees EXTERNAL EKG 09/09/2023 12:2 1 PM CDT Impressions EXTERNAL EKG - 09/12/2023 10:49 AM CDT Normal sinus rhythm Septal infarct (cited on or before 09-SEP-2023) Abnormal ECG When compared with ECG of 05-AUG-2023 12:38, No significant change was found Confirmed by Dionte Bejarano ([id number]) on 09/12/2023 10:49:39 AM Narrative Procedure Note Dionte Bejarano MD - 09/12/2023 IMPRESSION: Normal sinus rhythm Septal infarct (cited on or before 09-SEP-2023) Abnormal ECG When compared with ECG of 05-AUG-2023 12:38, No significant change was found Confirmed by Dionte Bejarano ([id number]) on 09/12/2023 10:49:39 AM us Rojelio Brewster MD IMG ECG ORDERABLES Final Result EXTERNAL EKG * (ABNORMAL) CMP (COMPREHENSIVE METABOLIC PANEL) (09/09/2023 12:19 PM CDT) SODIUM 139 136 - 145 mmol/L 09/09/2023 1:39 PM CDT [facility] POTASSIUM 3.4(L) 3.5 - 5.1 mmol/L 09/09/2023 1:39 PM CDT [facility] CHLORIDE 100 98 - 107 mmol/L 09/09/2023 1:39 PM CDT [facility] CO2, VENOUS 30 22 - 30 mmol/L 09/09/2023 1:39 PM CDT [facility] ANION GAP 12.4 <18.0 mmol/L 09/09/2023 1:39 PM CDT [facility] GLUCOSE 124(H) 70 - 99 mg/dL 09/09/2023 1:39 PM CDT [facility] BUN 25 8 - 26 mg/dL 09/09/2023 1:39 PM CDT [facility] CREATININE, BLOOD 1.10 0.70 - 1.30 mg/dL 09/09/2023 1:39 PM CDT [facility] BUN/CREATININE RATIO 23(H) 12 - 20 ratio 09/09/2023 1:[address] [facility] TOTAL PROTEIN 7.9 6.3 - 8.2 g/dL 09/09/2023 1:[address] [facility] ALBUMIN 4.4 3.5 - 5.0 g/dL 09/09/2023 1:[address] [facility] A/G RATIO 1.3 1.0 - 2.2 09/09/2023 1:[address] [facility] CALCIUM 10.0 8.7 - 10.5 mg/dL 09/09/2023 1:[address] [facility] T BILI 0.3 0.2 - 1.2 mg/dL 09/09/2023 1:[address] [facility] SGOT (AST) 26 5 - 34 U/L 09/09/2023 1:[address] [facility] SGPT (ALT) 42 0 - 55 U/L 09/09/2023 1:[address] [facility] ALKALINE PHOSPHATASE 57 40 - 150 U/L 09/09/2023 1:[address] [facility] IS THE PATIENT REQUIRED TO BE FASTING? No 09/09/2023 1:[address] [facility] GFR, ESTIMATED >60 >=60 09/09/2023 1:[address] [facility] Comment: Creatinine Clearance is the preferred criteria for selecting drug dose adjustments in renally impaired patients. The GFR is provided as additional pertinent clinical information. GFR is reported in mL/min/1.73 sq m. Calculation based on the Chronic Kidney Disease Epidemiology Collaboration (CKD- EPI) equation refit without adjustment for race. GFR, EST. >60 >=60 024 1:[address] [facility] GFR, EST. NONAFRICAN >60 >=60 09/09/2023 1:[address] [facility] Blood Venipuncture / Unknown 09/09/2023 12:19 PM CDT 09/09/2023 1:10 PM CDT us Rojelio Brewster MD CHEMISTRY ORDERABLES Final Resul t [facility] [address] [facility] [place] [address] documented in this encounter Visit Diagnoses Diagnosis Degenerative joint disease of left knee- Primary Osteoarthrosis, unspecified whether generalized or localized, lower leg Pre-op testing Preoperative examination, unspecified Degenerative joint disease of left knee Osteoarthrosis, unspecified whether generalized or localized, lower leg Pre-op testing Preoperative examination, unspecified Degenerative joint disease of left knee Osteoarthrosis, unspecified whether generalized or localized, lower leg Pre-op testing Preoperative examination, unspecified documented in this encounter Care Teams Pin Game Machine Inspector Relationship Specialty Start Date End Date Jamil Villavicencio MD [address] [place] [address] PCP - General Pediatrics 04/03/15 Maulik Campos MD [address] [place] [phone] Consulting Physician Neurology 01/28/22 Stephen Larsen MD [address] [phone] Consulting Physician Endocrinology 09/30/23 Susan Russell APRN, TOOL AND DIE REPAIRER [address] [place] [address] Nurse Practitioner Advanced Practice Nurse 08/27/24 documented as of this encounter
--- OUTSIDE RECORDS SUMMARY | 2024-12-17 16:33 | XMS_ITS | Clinical Summary ---
Author Organization [facility] Address [address] [place] [address] Phone Care Team Providers Care Fire Equipment Repairer Inspector Name Role Phone Jamil Villavicencio MD Primary Care Provider [phone] Maulik Campos MD Unavailable [phone] Stephen Larsen MD Unavailable Susan Russell APRN, LEDGER CLERK Unavailable + [phone] Allergies Active Allergy Reactions Criticality Noted Date Comments Amoxicillin-Pot Clavulanate Rash 04/08/20 15 Medications ATENOLOL POIndications:Hypert ension Take 1 Tablet by mouth every morning. Take 1 tablet (100 mg) by mouth daily. Indications: Hypertension Active MINOXIDIL POIndications:Hypert ension Take 2 Tablets by mouth 2 times daily. Take 2 tablets (20 mg) by mouth twice daily. Indications: Hypertension Active HYDROCHLOROTHIAZIDE POIndications:Edemja Take 1 Tablet by mouth daily. Take 1 tablet (25 mg) by mouth every day. Indications: Edemja Active Rosuvastatin Calcium (CRESTOR PO)Indications:elijah sterol Take 1 Tablet by mouth nightly. Take 1 tablet (20 mg) by mouth every day at bedtime. Indications: cholesterol Active CLOPIDOGREL BISULFATE POIndications:CVA Take 1 Tablet by mouth daily. Take 1 tablet (75 mg) by mouth daily. INSTRUCTED TO HOLD FOR 10 DAYS PRIOR TO SURGERY ON 09/22/2023 Indications: CVA Active ALLOPURINOL POIndications:Gout Take 1 Tablet by mouth every morning. Take 1 tablet (300 mg) by mouth every day. Indications: Gout Active pantoprazole (PROTONIX) 40 MG Tablet Delayed ResponseIndications: Symptomatic Gastroesophageal Reflux Disease (Inactive) Take 1 Tab by mouth daily. 30 Tab 3 12/14/19 17 Active Cyanocobalamin (VITAMIN B-12) 1000 MCG TabletIndications:Vi tamin B12 Deficiency Take 2 Tablets by mouth daily. Indications: Inadequate Vitamin B12 11/28/19 Active naloxone HCl (Narcan) 4 MG/0.1ML LiquidIndications:Op ioid Overdose 1 [place] by Nasal route as needed for Opioid Reversal. Administer in one nostril for symptoms of overdose (severe sleepiness, breathing problems, not responsive). Call 911. May repeat 1 spray in alternate nostril in 2-3 minutes if needed. 2 Each 08/05/19 24 Active fenofibrate (LOFIBRA) 54 MG TabletIndications:Hy pertriglyceridemia Take 1 Tablet by mouth daily. 90 Tablet 08/06/19 24 Active Lancets Misc Use as directed 200 Lancet 1 08/06/19 24 Active Glucose Blood Strip Diagnosis: Diabetes type 2 Blood testing frequency: 3 times a day 200 Strip 1 08/06/19 24 Active Blood Glucose Monitoring Suppl Device Diagnosis: Diabetes type 2 Blood testing frequency: 3 times a day 1 Each 08/06/19 24 Active aspirin EC 81 MG Tablet Delayed ResponseIndications: Atherosclerotic Disease Take 1 Tablet by mouth daily. INSTRUCTED TO HOLD FOR 10 DAYS PRIOR TO SURGERY ON 09/22/2023 Indications: Disease involving Lipid Deposits in the Arteries Active ALPRAZolam (XANAX) 0.5 MG TabletIndications:An xiety Take 1 Tablet by mouth 3 times daily as needed for Anxiety. 90 Tablet 09/23/19 24 Active zolpidem (AMBIEN) 10 MG TabletIndications:Pr imary insomnia Take 1 Tablet by mouth nightly as needed for Sleep. 30 Tablet 09/23/19 24 Active HYDROcodone-acetamin ophen ([place]) 7.5-325 MG TabletIndications:Pa in Take 1 Tablet by mouth every 4 hours as needed for Moderate or more severe pain. 100 Tablet 09/23/19 24 Active temazepam (RESTORIL) 30 MG CapsuleIndications:I nsomnia Take 1 Capsule by mouth nightly as needed for Sleep. Indications: Trouble Sleeping Active oxyCODONE (OxyCONTIN) 80 MG Tablet Extended Release 12 hour Abuse-DeterrentIndic ations:Chronic Pain Take 1 Tablet by mouth every 12 hours as needed for Moderate or more severe pain or Severe pain. Indications: Chronic Pain Active pregabalin (LYRICA) 75 MG CapsuleIndications:C ough Take 1 Capsule by mouth 3 times daily. Indications: Cough 60 Capsule 01/23/20 Active Ozempic, 2 MG/DOSE, 8 MG/3ML Solution Pen-injector 2 mg by Subcutaneous route once a week. 9 mL 1 06/12/19 25 Active Active Problems Problem Noted Date Diagnosed Date Hemiplegia and hemiparesis f ollowing cerebral infarction affecting right dominant side 10/02/2024 Primary osteoarthritis of left knee 09/22/2023 Carpal tunnel syndrome, bilateral upper limbs Chronic pain in right shoulder 08/06/2023 Chronic pain of both knees 08/06/2023 Polyneuropathy 08/06/2023 Right sided weakness 08/06/2023 Type 2 diabetes mellitus 08/06/2023 Right sided weakness 08/05/2023 DVT (deep venous thrombosis) 08/05/2023 Arthritis 08/05/2023 CVA (cerebral vascular accident) 11/06/2016 TIA (transient ischemic attack) 11/05/2016 Paresthesia of right upper and lower extremity 0 11/05/2016 Hypertension 11/05/2016 Acute UTI 11/05/2016 B12 deficiency 04/08/2015 Anemia due to vitamin B12 deficiency Encounters Date Type Department Care Team Description 12/04/2024 2:26 PM CDT - 12/04/2024 11:59 PM CDT Hospital Encounter [facility] MRI [address] [place] [address] Jamil Villavicencio MD Discharge Disposition: Discharged to home or Selfcare 12/04/2024 Travel 11/08/2024 Transcribe Orders [facility] Central Scheduling [address] [place] [address] Jamil Villavicencio MD Intractable headache, unspecified chronicity pattern, unspecified headache type (Primary Dx) 10/25/2024 Results Follow-Up [facility] - Neurology [facility] [address] [place] [address] Susan Russell APRN, LEDGER CLERK CT ANGIO HEAD AND NECK WWO CONTRAST W PP 10/24/2024 Transcribe Orders [facility] Central Scheduling [address] [place] [address] Provider, Not On File Bilateral carpal tunnel syndrome (Primary Dx) 10/17/2024 2:36 PM CDT - 10/17/2024 11:59 PM CDT [facility] [address] [place] [address] Susan Russell APRN, LEDGER CLERK Discharge Disposition: Discharged to home or Selfcare 10/17/2024 Travel 10/02/2024 4:30 PM CDT Office Visit [facility] Neurology [facility] [address] [place] [address] Susan Russell APRN, LEDGER CLERK Hemiplegia and hemiparesis following cerebral infarction affecting right dominant side (HCC) (Primary Dx); History of cerebrovascular accident; Polyneuropathy; Other secondary hypertension Discharge Disposition: Discharged to home or Selfcare 10/02/2024 Travel from Last 3 Months Immunizations Immunization Administration Dates Next Due Influenza Vaccine 12/25/2014,02/16/2013 Influenza Vaccine, Quadrivalent, PF 04/15,02/28/2019,03/01/2018,2015 Influenza, Injectable, Quadrivalent 02/18/2014 Influenza, Seasonal, Injecta ble, Undefined 03/30/2017 Pneumococcal Vaccine Adult - 23 Valent 02/18/2014 TD VACCINE 02/15/2006 TDAP Vaccine 12/24/2021,12/19/2013 Family History Medical History Relation Name Comments Congestive Heart Failure Father Heart Attack Father Diabetes Mother Heart Disease Mother Heart Surgery Mother Relation Name Status Comments Brother Alive Father Mother Sister Alive Social History Tobacco Use Types Packs/Day Years Used Date Smoking Tobacco: Former Cigarettes Smokeless Tobacco: Never Tobacco Cessation:Counseling Given: Not Answered Comments:QUIT IN HIGH SCHOOL Alcohol Use Standard Drinks/Week Comments Yes 0 (1 standard drink = 0.6 oz pur e alcohol) [facility] Utilities Answer Date Recorded In the past 12 months has e electric, gas, oil, or water company threatened to shut off services in your home? Patient declined 09/22/2023 Social Connection and Isolation Panel Answer Date Recorded In a typical week, how many times do you talk on the phone with family, friends, or neighbors? Patient declined 09/22/2023 How often do you get togethe r with friends or relatives? Patient declined 09/22/2023 How often do you attend jew or gnosticism serv ices? Patient declined 09/22/2023 Do you belong to any clubs o r organizations such as jew groups, unions, fraternal or athletic groups, or school groups? Patient declined 09/22/2023 How often do you attend meet ings of the clubs or organizations you belong to? Patient declined 09/22/2023 Are you , , di vorced, , never , or living with a partner? Patient declined 09/22/2023 AUDIT-C Answer Date Recorded Q1: How often do you have a drink containing alc ohol? Patient declined 09/22/2023 Q2: How many drinks containi ng alcohol do you have on a typical day when you are drinking? Patient declined 09/22/2023 Q3: How often do you have si x or more drinks on one occasion? Patient declined 09/22/2023 Overall Financial Resource Strain (CARDIA) Answe r Date Recorded How hard is it for you to pa y for the very basics like food, housing, medical care, and heating? Patient declined 09/22/2023 [facility] - Occupational Stress Questionnaire Answer Date Recorded Do you feel stress - tense, restless, nervous, or anxious, or unable to sleep at night because your mind is troubled all the time - these days? Patient declined 09/22/2023 Exercise Vital Sign Answer Date Recorde d On average, how many days pe r week do you engage in moderate to strenuous exercise (like a brisk walk)? Patient declined On average, how many minutes do you engage in exercise at this level? Patient declined 09/22/2023 Hunger Vital Sign Answer Date Recorded Within the past 12 months, y ou worried that your food would run out before you got the money to buy more. Patient declined Within the past 12 months, t he food you bought just didn't last and you didn't have money to get more. Patient declined 01/2024 PRAPARE - Transportation Answer Date Re corded In the past 12 months, has l ack of transportation kept you from medical appointments or from getting medications? Patient declined 09/22/2023 In the past 12 months, has l ack of transportation kept you from meetings, work, or from getting things needed for daily living? Patient declined 09/22/2023 Housing Stability Vital Sign Answer David e Recorded In the last 12 months, was t here a time when you were not able to pay the mortgage or rent on time? Patient declined 09/22/19 24 In the last 12 months, how many places have you lived? 1 09/22/2023 In the last 12 months, was t here a time when you did not have a steady place to sleep or slept in a half-way (including now)? Patient declined 09/22/2023 Sexually Active Control Partners Comments Yes Female Sex and Gender Information Value Date Recorded Sex Assigned at Not on file Legal Sex Male 12:10 AM CDT Gender Identity Not on file Sexual Orientation Not on file Last Filed Vital Signs Vital Sign Reading Time Taken Comments Blood Pressure 112/80 10/02/2024 4:24 PM CDT Pulse 87 10/02/2024 4:24 PM CDT Temperature 36.7 C (98 F) 10/02/2024 4:24 PM CDT Respiratory Rate 16 10/02/2024 4:24 PM CDT Oxygen Saturation 94% 10/02/2024 4:24 PM CDT Inhaled Oxygen Concentration - - Weight 84.8 kg (187 lb) 10/02/2024 4:24 PM CDT Height 170.2 cm (5' 7) 10/02/2024 4:24 PM CDT Body Mass Index 29.29 10/02/2024 4:24 PM CDT Plan of Treatment Upcoming Encounters Date Type Department Care Team (Late st Contact Info) Description 12/19/2024 2:00 PM CDT EM[facility] [address] [place] [address] Provider, Not On File [place] Evette Mendoza, MANAGER OF PATIENT, AUTOMOTIVE FUEL INJECTION SERVICER [address] [address] Discharge Disposition: Discharged to home or Selfcare 01/01/2025 3:00 PM CDT [facility] [place] [address] [place] [address] Susan Russell, MANAGER OF PATIENT, LEDGER CLERK [address] [place] [address] 03/12/2025 2:30 PM CDT [facility] Visit [facility] - [place] [address] [place] [address] Stephen Larsen MD [address] [address] Health Maintenance Due Date Last Done Comments Diabetes: Eye Exam 1965 Hepatitis C Virus (HCV) Screening 1965 Cologuard 2009 Immunochemical Fecal Occult Blood 2009 Zoster Immunization (1 of 2) 2014 Pneumococcal Immunization (50+ years) (2 of 2 - PCV) 02/18/2015 02/18/2014 PSA Discussion 2019 SARS-COV-2 Immunization ( season) 2024 Respiratory Syncytial Virus (RSV) Immunization (Adult) (1 - Risk 60-74 years 1-dose series) 2024 Influenza Immunization (#1) 01/14/202504/15, 02/28/2019, 03/01/2018, Additional history exists Diabetes: Hemoglobin A1c 03/12/202509/10/2 025, 06/12/2024, 03/12/2024, Additional history exists Diabetes: Foot Exam 09/10/2025 09/10/2024 Diabetes: Nephropathy Screening 09/10/2025 09/10/2024, 09/10/2024, 12/09/2023, Additional history exists Colonoscopy 10/27/2031 10/26/2021 Colorectal Cancer Screening 10/27/2031 Td Immunization Every 10 Years (Adults With 1 Tdap) 12/25/2031 12/24/2021, 12/19/2013, 02/15/2006 Pneumococcal Immunization Combined Discontinued 02/18/2014 DTaP/Tdap/Td Immunization Discontinued 2021, 12/19/2013, 02/15/2006 TdaP Immunization Discontinued 12/24/2021, 12/19/2013 Hepatitis B Immunization Aged Out No longer eligible based on patient's age to complete this topic Human Papillomavirus (HPV) Immunization Aged Out No longer eligible based on patient's age to complete this topic Meningococcal Immunization (ACWY) Aged Out No longer eligible based on patient's age to complete this topic Rotavirus Immunization Aged Out No lo nger eligible based on patient's age to complete this topic Medical Devices Implanted Type Area Fiber Drier Operator Device Identifier Shelf Expiration Date Model / Serial / Lot Cement Bone Orthoset 1 40gm - [id number] Implanted:Qty: 1 on 09/22/2023 by [facility] IMPLANT Left: Knee [employer] 08/13/2024 DEGENERATIVE JOINT DISEASE, LEFT KNEE / DEGENERATIVE JOINT DISEASE, LEFT KNEE / [id number] Component Patellar High Dome 9mm 28mm Recessed Advance All Poly - [id number] Implanted:Qty: 1 on 09/22/2023 by [facility] IMPLANT Left: Knee [employer] 04/03/2030 [id number] / [id number] / [id number] Insert Evolution Mp Tib Keeled Nonpor Size 5 Standard Left - [id number] Implanted:Qty: 1 on 09/22/2023 by [facility]jelio Brewster [facility] IMPLANT Left: Knee [employer] 08/18/2031 [id number] / [id number] / [id number] Insert Evolution Mp Fem Cs/Cr Porous - [id number] Implanted:Qty: 1 on 09/22/2023 by [facility]jelio Brewster [facility] IMPLANT Left: Knee [employer] 09/01/2031 [id number] / [id number] / [id number] Liner Tibial Evolution Mp Size 5 Standard 10mm Thk Left Femur Cruciate Substituting Polyethylene - [id number] Implanted:Qty: 1 on 09/22/2023 by Rojelio Brewster MD at [facility] IMPLANT Left: Knee [employer] 06/24/2031 [id number] / [id number] / [id number] Procedures Procedure Name Priority Date/Time Associated Diagnosis Comments MRI BRAIN W/WO CONTRAST Routine 12/04/2024 4:12 PM CDT Intractable headache, unspecified chronicity pattern, unspecified headache type POCT CREATININE Routine 12/04/2024 3:[address] ANGIO HEAD AND NECK WWO CONTRAST W PP Routine 10/17/2024 3:07 PM CDT History of cerebrovascular accident POCT CREATININE Routine 10/17/2024 2:46 PM CDT UR MICROALBUMIN/CREATIN INE RATIO RANDOM Routine 09/10/2024 3:25 PM CDT Type 2 diabetes mellitus with diabetic polyneuropathy, without long-term current use of insulin (HCC) POCT GLYCOSYLATED HEMOGLOBIN Routine 09/10/2024 2:33 PM CDT Type 2 diabetes mellitus with diabetic polyneuropathy, without long-term current use of insulin (HCC) from Last 3 Months or Most Recently Relevant to Health Maintenance Results * MRI BRAIN W/WO CONTRAST (12/04/2024 4:12 PM CDT) Anatomical Region Laterality Modality Head N/A Magnetic Resonan ce 12/05/2024 12:5 5 PM CDT Impressions 12/05/2024 12:57 PM CDT IMPRESSION: 1. No acute intracranial abnormality. No abnormal intracranial enhancement. 2. Redemonstrated sequela of prior left basal ganglia hematoma. 3. New small chronic microhemorrhages in the right parietal lobe and right temporal lobe. 4. Redemonstrated numerous small chronic infarcts of the right cerebellum and right paramedian prasanna. Narrative 12/05/2024 12:57 PM CDT EXAM DESCRIPTION: MRI BRAIN W/WO CONTRAST REASON FOR STUDY: Hx multiple strokes. Off balance sometimes. TECHNIQUE: Multiplanar imaging includes noncontrast T1, T2, FLAIR, diffusion with ADC map and post contrast T1 sequences. Additional sequence(s) sensitive to blood products. Images stored on PACS. CONTRAST TYPE/DOSE: 18mL of GADOTERIDOL 279.3 MG/ML IV SOLN injected via Intravenous COMPARISON: Head CT and CTA 10/17/2024. Brain MRI 11/05/2016 FINDINGS: Redemonstrated hemosiderin deposition and T2 hyperintensity within the left basal ganglia representing sequela of prior hematoma. New small chronic microhemorrhage in the right parietal lobe and right temporal lobe. There is a small amount of gliosis associated with the chronic right temporal microhemorrhage. Chronic microhemorrhage in the left caudate. Mild scattered superficial siderosis such as within the left parietal lobe (series 7, image 16). No acute infarction is identified. Numerous small chronic infarcts of the right posteroinferior cerebellum are noted. Small chronic infarct of the right paramedian prasanna. Small chronic infarct of the right werner radiata. Small chronic cortical infarct of the left occipital lobe is possibly new from prior exam but evaluation is limited due to motion artifact on the prior study. No acute infarction. No mass effec or midline shift. Mild diffuse cerebral parenchymal volume loss. Additional mild white matter T2/FLAIR hyperintensity in the periventricular and subcortical white matter is nonspecific but can be seen in the setting of chronic small vessel ischemic disease. The major flow voids are within normal limits. The pituitary gland is within normal limits for patient age. The calvarium is unremarkable. The orbits are unremarkable. The paranasal sinuses are well aerated. The mastoid air cells are well aerated. THIS IS AN ELECTRONICALLY VERIFIED FINAL REPORT 12/05/2024 12:55 PM - Electronically signed by Mathew Rodríguez M.D. MM: MM Report ID: [id number] Reading Location: [id number] Procedure Note Mathew Rodríguez MD - 12/05/2024 EXAM DESCRIPTION: MRI BRAIN W/WO CONTRAST REASON FOR STUDY: Hx multiple strokes. Off balance sometimes. TECHNIQUE: Multiplanar imaging includes noncontrast T1, T2, FLAIR, diffusion with ADC map and post contrast T1 sequences. Additional sequence(s) sensitive to blood products. Images stored on PACS. CONTRAST TYPE/DOSE: 18mL of GADOTERIDOL 279.3 MG/ML IV SOLN injected via Intravenous COMPARISON: Head CT and CTA 10/17/2024. Brain MRI 11/05/2016 FINDINGS: Redemonstrated hemosiderin deposition and T2 hyperintensity within the left basal ganglia representing sequela of prior hematoma. New small chronic microhemorrhage in the right parietal lobe and right temporal lobe. There is a small amount of gliosis associated with the chronic right temporal microhemorrhage. Chronic microhemorrhage in the left caudate. Mild scattered superficial siderosis such as within the left parietal lobe (series 7, image 16). No acute infarction is identified. Numerous small chronic infarcts of the right posteroinferior cerebellum are noted. Small chronic infarct of the right paramedian prasanna. Small chronic infarct of the right werner radiata. Small chronic cortical infarct of the left occipital lobe is possibly new from prior exam but evaluation is limited due to motion artifact on the prior study. No acute infarction. No mass effec or midline shift. Mild diffuse cerebral parenchymal volume loss. Additional mild white matter T2/FLAIR hyperintensity in the periventricular and subcortical white matter is nonspecific but can be seen in the setting of chronic small vessel ischemic disease. The major flow voids are within normal limits. The pituitary gland is within normal limits for patient age. The calvarium is unremarkable. The orbits are unremarkable. The paranasal sinuses are well aerated. The mastoid air cells are well aerated. THIS IS AN ELECTRONICALLY VERIFIED FINAL REPORT 12/05/2024 12:55 PM - Electronically signed by Mathew Rodríguez M.D. MM: MM Report ID: [id number] Reading Location: [place] [address] IMPRESSION: 1. No acute intracranial abnormality. No abnormal intracranial enhancement. 2. Redemonstrated sequela of prior left basal ganglia hematoma. 3. New small chronic microhemorrhages in the right parietal lobe and right temporal lobe. 4. Redemonstrated numerous small chronic infarcts of the right cerebellum and right paramedian prasanna. us Jamil Villavicencio MD IMG MR ORDERABLES Final Res ult * POCT Creatinine (12/04/2024 3:16 PM CDT) Only the most recent of2 resultswithin the time period is included. CREATININE - POCT 1.3 0.6 - 1.3 mg/dL 12/04/2024 3:17 PM CDT [facility] Blood 12/04/2024 3:16 PM CDT 12/04/2024 3:17 PM CDT us None Provider POINT OF CARE TESTING Final Resu lt [facility] [address] [place] [address] * CT ANGIO HEAD AND NECK WWO CONTRAST W PP (10/17/2024 3:07 PM CDT) Anatomical Region Laterality Modality vascular N/A Computed Tomogra phy 10/18/2024 8:54 AM CDT Impressions 10/18/2024 8:56 AM CDT IMPRESSION: BRAIN: 1. No acute intracranial hemorrhage or midline shift. 2. Chronic infarctions, chronic microvascular ischemic type white-matter changes and additional findings as above. 3. The need for further evaluation with MRI as clinically indicated. CAROTID CTA: 1. Right carotid bifurcation/proximal cervical ICA atherosclerotic changes without significant stenosis. 2. Left carotid bifurcation/proximal cervical ICA atherosclerotic changes without significant stenosis. 3. Diminutive caliber of the right vertebral artery as seen on the previous CT angiogram. 4. Atherosclerotic changes in the dominant left vertebral artery. 5. Additional findings as above. INTRACRANIAL CTA: 1. The diminutive right vertebral artery V4 segment is not contrast filled, similar when compared to previous CT angiograms. 2. Atherosclerotic changes as above. Narrative 10/18/2024 8:56 AM CDT EXAM DESCRIPTION: CT ANGIO HEAD AND NECK WWO CONTRAST W PP REASON FOR STUDY: Hx of stroke with residual right sided weakness/pain/numbness of right side x 2-3 years. TECHNIQUE: Axial images were first obtained through the brain without contrast. Post IV contrast scanning, thin section axial imaging from the great vessel origins through the brain. 3D MIP images rendered on scanning unit and reviewed at time of interpretation. Carotid stenosis measurements are based on NASCET criteria. Automated exposure control was used as a dose optimization technique for this examination. CONTRAST TYPE/DOSE: 100mL of IOPAMIDOL 76 % IV SOLN injected via Intravenous COMPARISON: CTA head and neck dated 08/05/2023, 02/08/2022 and 12/24/2021. MRI brain dated 07/29/2023 and 11/11/2021. CT head without contrast dated 07/17/2023 and 12/28/2021. FINDINGS: BRAIN: No acute intracranial hemorrhage. The size and configuration of the ventricles and sulci are similar when compared to the previous examinations. No hydrocephalus. The basilar cisterns are maintained. Left basal ganglia chronic infarction is again seen. Additional smaller cortical/subcortical infarctions to include in the left frontal lobe, parietal lobe and occipital lobes are again seen. Chronic infarction in the right tu prasanna and right cerebellum. Other infarctions seen on the previous MRI brain dated 07/29/2023 are not well assessed by CT technique. The subcortical and periventricular white matter low attenuation in the bilateral cerebral hemispheres is nonspecific but compatible with chronic microvascular ischemic type change in a patient of this age. The bilateral globes are symmetric. Mucosal thickening in the bilateral ethmoid air cells and maxillary sinus floors. Partially imaged dental/periodontal disease. The mastoid air cells are predominantly clear. The soft tissue density in the bilateral external auditory canals is interpreted as cerumen. There are vascular calcifications. There is no depressed calvarial fracture. CAROTID AND VERTEBRAL ARTERIES: There is mixed, predominantly noncalcified plaque in a three-vessel aortic arch, origin and proximal segments of the left subclavian artery. The mid to distal left subclavian artery is obscured by dense venous contrast related artifact. The right common carotid artery is patent. Mixed plaque at the right carotid bifurcation/proximal cervical ICA with less than 10% stenosis by NASCET criteria. The remainder of the right cervical ICA is patent to the level of the skull base. The left common carotid artery is patent. Mixed plaque at the left carotid bifurcation/proximal cervical ICA with less than 10% stenosis by NASCET criteria. The remainder of the left cervical ICA is patent to the level of the skull base. The right vertebral artery is diminutive in caliber from its origin to the level of the skull base as seen on the previous CT angiogram dated 08/05/2023. The dominant left vertebral artery origin calcified plaque and mild narrowing. The remainder of the left vertebral artery is patent to the level of the skull base. Lung apices without a focal pneumonic consolidation. Partially imaged thoracic esophagus with internal debris. Severe diffuse dental cavity/partially fractured teeth and extensive periapical lucencies on both sides. Increased sclerosis in the mandible and maxilla can be seen with osteitis in the proper clinical scenario. The vocal cords are adducted obscuring evaluation of the supraglottic and glottic region. INTRACRANIAL VESSELS: The right vertebral artery petrous segment is patent. Calcified plaque at the cavernous segment with mild narrowing and supraclinoid segment with gxju-wz-koqkwyok narrowing. Left internal carotid artery petrous segment is patent. Calcified plaque at the cavernous segment without significant stenosis. Calcified plaque at the supraclinoid segment with ebcq-gj-kdphwuvt narrowing. The right anterior and middle cerebral artery proximal branches are patent. The left anterior and middle cerebral artery proximal branches are patent. Non dominant right vertebral artery V4 segment is not contrast filled, similar when compared to the earliest available CT angiogram dated 12/24/2021. Dominant left vertebral artery V4 segment multifocal mixed plaque and dnip-cc-qyevjwhl narrowing. Proximal basilar artery small contrast filled outpouching as seen on the earliest available CT angiogram dated 12/24/2021 could reflect an infundibulum, portion of the contrast filled distal most right vertebral artery or less likely an aneurysm as described on the previous CT angiogram. There is mixed plaque in the basilar artery. Narrowing in the posterior cerebral arteries as noted previously. THIS IS AN ELECTRONICALLY VERIFIED FINAL REPORT 10/18/2024 8:54 AM - Electronically signed by Eddy Torre D.O. AP: MEGAN Report ID: [id number] Reading Location: [id number] Procedure Note Eddy Torre DO - 10/18/2024 EXAM DESCRIPTION: CT ANGIO HEAD AND NECK WWO CONTRAST W PP REASON FOR STUDY: Hx of stroke with residual right sided weakness/pain/numbness of right side x 2-3 years. TECHNIQUE: Axial images were first obtained through the brain without contrast. Post IV contrast scanning, thin section axial imaging from the great vessel origins through the brain. 3D MIP images rendered on scanning unit and reviewed at time of interpretation. Carotid stenosis measurements are based on NASCET criteria. Automated exposure control was used as a dose optimization technique for this examination. CONTRAST TYPE/DOSE: 100mL of IOPAMIDOL 76 % IV SOLN injected via Intravenous COMPARISON: CTA head and neck dated 08/05/2023, 02/08/2022 and 12/24/2021. MRI brain dated 07/29/2023 and 11/11/2021. CT head without contrast dated 07/17/2023 and 12/28/2021. FINDINGS: BRAIN: No acute intracranial hemorrhage. The size and configuration of the ventricles and sulci are similar when compared to the previous examinations. No hydrocephalus. The basilar cisterns are maintained. Left basal ganglia chronic infarction is again seen. Additional smaller cortical/subcortical infarctions to include in the left frontal lobe, parietal lobe and occipital lobes are again seen. Chronic infarction in the right tu prasanna and right cerebellum. Other infarctions seen on the previous MRI brain dated 07/29/2023 are not well assessed by CT technique. The subcortical and periventricular white matter low attenuation in the bilateral cerebral hemispheres is nonspecific but compatible with chronic microvascular ischemic type change in a patient of this age. The bilateral globes are symmetric. Mucosal thickening in the bilateral ethmoid air cells and maxillary sinus floors. Partially imaged dental/periodontal disease. The mastoid air cells are predominantly clear. The soft tissue density in the bilateral external auditory canals is interpreted as cerumen. There are vascular calcifications. There is no depressed calvarial fracture. CAROTID AND VERTEBRAL ARTERIES: There is mixed, predominantly noncalcified plaque in a three-vessel aortic arch, origin and proximal segments of the left subclavian artery. The mid to distal left subclavian artery is obscured by dense venous contrast related artifact. The right common carotid artery is patent. Mixed plaque at the right carotid bifurcation/proximal cervical ICA with less than 10% stenosis by NASCET criteria. The remainder of the right cervical ICA is patent to the level of the skull base. The left common carotid artery is patent. Mixed plaque at the left carotid bifurcation/proximal cervical ICA with less than 10% stenosis by NASCET criteria. The remainder of the left cervical ICA is patent to the level of the skull base. The right vertebral artery is diminutive in caliber from its origin to the level of the skull base as seen on the previous CT angiogram dated 08/05/2023. The dominant left vertebral artery origin calcified plaque and mild narrowing. The remainder of the left vertebral artery is patent to the level of the skull base. Lung apices without a focal pneumonic consolidation. Partially imaged thoracic esophagus with internal debris. Severe diffuse dental cavity/partially fractured teeth and extensive periapical lucencies on both sides. Increased sclerosis in the mandible and maxilla can be seen with osteitis in the proper clinical scenario. The vocal cords are adducted obscuring evaluation of the supraglottic and glottic region. INTRACRANIAL VESSELS: The right vertebral artery petrous segment is patent. Calcified plaque at the cavernous segment with mild narrowing and supraclinoid segment with wabi-ow-fmfufpaz narrowing. Left internal carotid artery petrous segment is patent. Calcified plaque at the cavernous segment without significant stenosis. Calcified plaque at the supraclinoid segment with fcqe-cq-lllvhbjn narrowing. The right anterior and middle cerebral artery proximal branches are patent. The left anterior and middle cerebral artery proximal branches are patent. Non dominant right vertebral artery V4 segment is not contrast filled, similar when compared to the earliest available CT angiogram dated 12/24/2021. Dominant left vertebral artery V4 segment multifocal mixed plaque and rngw-hs-amaeqzhw narrowing. Proximal basilar artery small contrast filled outpouching as seen on the earliest available CT angiogram dated 12/24/2021 could reflect an infundibulum, portion of the contrast filled distal most right vertebral artery or less likely an aneurysm as described on the previous CT angiogram. There is mixed plaque in the basilar artery. Narrowing in the posterior cerebral arteries as noted previously. THIS IS AN ELECTRONICALLY VERIFIED FINAL REPORT 10/18/2024 8:54 AM - Electronically signed by Eddy Torre D.O. AP: MEGAN Report ID: [id number] Reading Location: [id number] IMPRESSION: BRAIN: 1. No acute intracranial hemorrhage or midline shift. 2. Chronic infarctions, chronic microvascular ischemic type white-matter changes and additional findings as above. 3. The need for further evaluation with MRI as clinically indicated. CAROTID CTA: 1. Right carotid bifurcation/proximal cervical ICA atherosclerotic changes without significant stenosis. 2. Left carotid bifurcation/proximal cervical ICA atherosclerotic changes without significant stenosis. 3. Diminutive caliber of the right vertebral artery as seen on the previous CT angiogram. 4. Atherosclerotic changes in the dominant left vertebral artery. 5. Additional findings as above. INTRACRANIAL CTA: 1. The diminutive right vertebral artery V4 segment is not contrast filled, similar when compared to previous CT angiograms. 2. Atherosclerotic changes as above. us Susan Russell MANAGER OF PATIENT, LEDGER CLERK IMG CT ORDERABLES Fi nal Result * UR MICROALBUMIN/CREATININE RATIO RANDOM (09/10/2024 3:25 PM CDT) Pathologist [facility] [place] RAN UR MICROALBUMIN 4.28 mg/dL 09/10/2024 6:01 PM CDT [facility] Comment:No reference range h as been established. Consider Clinical Correlation. CREATININE URINE 247.0 mg/dL 09/11/19 6:01 PM CDT [facility] Comment:No reference range h as been established. Consider Clinical Correlation. ALB/CREAT RATIO 17 0 - 30 mg/g CRE 09/10/2024 6:01 PM CDT [facility] Urine Non-Phlebotomy Collection / Unknown 09/10/2024 3:25 PM CDT 09/10/2024 4:31 PM CDT us Stephen Larsen MD URINE ORDERABLES Final Result [facility] [address] [place] [address] * POCT GLYCOSYLATED HEMOGLOBIN (09/10/2024 2:33 PM CDT) HGB-A1C 5.3 4 - 6 % Blood 09/10/2024 2:33 PM CDT Stephen Larsen MD POINT OF CARE TESTING (MANUAL) F inal Result from Last 3 Months or Most Recently Relevant to Health Maintenance Insurance MEDICA[place]ICARE Advance Directives * Full Code (Latest Code Status on File) Date Activated Date Inactivated Comments 09/28/2023 1:00 PM * Full Code Date Activated Date Inactivated Comments 08/05/2023 6:26 PM 08/06/2023 4:05 PM CPR-Full Puma atment: FULL ARREST: Attempt Resuscitation/CPR wit intubation and mechanical ventilation. PRE-ARREST: Use entire range of life support measures to stabilize the patient. * Full Code Date Activated Date Inactivated Comments 11/12/2016 9:38 AM 05/02/2019 6:27 PM * Full Code Date Activated Date Inactivated Comments 11/06/2016 10:50 AM 11/08/2016 7:36 PM CPR-Full Tr eatment: FULL ARREST: Attempt Resuscitation/CPR wit intubation and mechanical ventilation. PRE-ARREST: Use entire range of life support measures to stabilize the patient. 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
--- OUTSIDE RECORDS SUMMARY | 2024-12-17 16:33 | XMS_ITS | Clinical Summary ---
Author Organization [facility] Address [address] [place] [id number] Care Team Providers Care Promotions Coordinator Name Role Phone Unavailable Primary Care Provider Unavailabl e Social History Tobacco Use Types Packs/Day Years Used Date Smoking Tobacco: Smoker, Current Status Unknown Sex and Gender Information Value Date Recorded Sex Assigned at Not on file Legal Sex Male 11:24 PM CDT Gender Identity Not on file Sexual Orientation Not on file Plan of Treatment Health Maintenance Due Date Last Done Comments Colorectal Cancer Screening Colonoscopy (10 Years) 1964 Annual Physical 1967 Hepatitis C 1982 DTaP, Tdap and Td Vaccines ( 1 - Tdap) 1983 Pneumococcal Vaccine: 50+ Ye ars (1 of 1 - PCV) 2014 Zoster Vaccines (1 of 2) 2014 COVID-19 Vaccine ( - 2023-2 5 season) 2024 RSV Immunization or 60+ Years (1 - 1-dose 75+ series) 2039 Meningococcal B Vaccine Aged Out No l onger eligible based on patient's age to complete this topic Meningococcal Vaccine Aged Out No jose attila eligible based on patient's age to complete this topic RSV Immunizations Under 20 Months Aged Out No longer eligible based on patient's age to complete this topic
--- OUTSIDE RECORDS SUMMARY | 2024-12-17 16:33 | XMS_ITS | Encounter Summary ---
Author Organization [facility] Address [address] [place] [id number] Care Team Providers Care Vessel Manager Name Role Phone Jamil Villavicencio MD Primary Care Provide r Jamil Villavicencio MD Unavailable [phone] Sami Grossman MD Unavailable [phone] Encounter Details Date Type Department Care Team (Late st Contact Info) Description 11/11/2021 Telephone 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 02/02/2022 02/08/2022 06/02/2022 3:[address] documented as of this encounter Care Teams Vessel Manager Relationship Specialty Start Date End Date Jamil Villavicencio MD [address] [place] [address] PCP - General 10/19/16 Jamil Villavicencio MD [address] [place] [address] 10/19/16 Sami Grossman MD [address] [place] [address] Consulting Physician Gastroenterology 10/26/21 documented as of this encounter
--- NOTE | 2024-12-17 16:39 | ED_ITS ---
HPI - Chest Pain General Chief Complaint: Chest Pain Stated Complaint: chest pain Time Seen by Provider: 12/17/24 16:30 History of Present Illness HPI narrative: Pt presents with anterior lower chest tightness for about 10 minutes. Pt denies SOB or nausea. Pt was at doctor's office and they were about to clean his ears and he grabbed his chest. Pt has no cardiac history personally. Pt says his father of a heart attack at 61. Pt denies radiation of discomfort. Pt has history of prio cva with right sided deficit. Related Data Home Medications ?Medication ?Instructions ?Recorded ?Confirmed ?Last Taken ?Type Advair Diskus 1 puff PO BID 10/19/21 10/19/21 Unknown History allopurinol 300 mg tablet 1 tablet PO DAILY 10/19/21 10/19/21 Unknown History alprazolam 0.5 mg tablet 1 tablet PO TID PRN Anxiety 10/19/21 10/19/21 Unknown History atenolol 100 mg tablet 1 tablet PO DAILY 10/19/21 10/19/21 Unknown History carbamazepine 400 mg 400 mg PO BID 10/19/21 10/19/21 Unknown History tablet,extended release,12 hr cholecalciferol (vitamin D3) 25 25 mcg PO BID 10/19/21 10/19/21 Unknown History mcg (1,000 unit) capsule clopidogrel 75 mg tablet 1 tablet PO DAILY 10/19/21 10/19/21 Unknown History cyanocobalamin (vitamin B-12) 2,500 mcg PO DAILY 10/19/21 10/19/21 Unknown History 2,000 mcg tablet duloxetine 30 mg capsule,delayed 30 mg PO BID 10/19/21 10/19/21 Unknown History release sprinkle hydrochlorothiazide 25 mg tablet 1 tablet PO DAILY 10/19/21 10/19/21 Unknown History hydrocodone 7.5 mg-acetaminophen 1 - 2 tablet PO Q4-6H PRN Pain 10/19/21 10/19/21 Unknown History 325 mg tablet minoxidil 10 mg tablet 2 tablet PO BID 10/19/21 10/19/21 Unknown History nortriptyline 50 mg capsule 100 mg PO HS 10/19/21 10/19/21 Unknown History oxycodone 80 mg tablet,crush 80 mg PO Q12H 10/19/21 10/19/21 Unknown History resistant,extended release 12 hr pantoprazole 40 mg tablet,delayed 1 tablet PO DAILY 10/19/21 10/19/21 Unknown History release rosuvastatin 20 mg tablet 1 tablet PO HS 10/19/21 10/19/21 Unknown History sildenafil 100 mg tablet 100 mg PO DAILY PRN erectile 10/19/21 10/19/21 Unknown History disfunction triamcinolone acetonide 0.1 % 1 applic topical BID 10/19/21 10/19/21 Unknown History topical cream Allergies Allergy/AdvReac Type Severity Reaction Status Date / Time amoxicillin Allergy Unknown HANDS Verified 10/19/21 17:30 SWELL AND BECOME REDDENED clavulanic acid Allergy Unknown HANDS Verified 10/19/21 17:30 SWELL AND BECOME REDDENED Review of Systems 2 Review of Systems: All systems reviewed & are unremarkable except as noted in HPI and below PMFSH Past Medical History Medical History (Updated 12/17/24 @ 17:59 by Sabine Wiseman III, DO) B12 deficiency Lumbar radiculopathy Cervical radiculopathy Pansinusitis Social History Social History (Updated 10/19/21 @ 17:10 by Maurice Raza MD) Social History: nonsmoker. drinks socially, no history of substance abuse Exam 2 Const: General: no acute distress Nutritional Appearance: well nourished Orientation/consciousness: patient oriented x3 Limitations: no limitations and altered mental status Eyes: Pupils: Equal, round and reactive pupils present EOM: EOMs intact bilaterally Neck: Neck: normal visual inspection Chest: Chest palpation & inspection: normal inspection of the chest and no tenderness Resp: Effort & Inspection: normal respiratory effort Auscultation: clear to auscultation bilaterally Cardio: Rate: regular rate Rhythm: regular rhythm GI: GI Palp: Yes Soft to palpation and No Tenderness to palpation present (GI) Auscultation: normal bowel sounds Skin: General skin exam: normal color Rashes: no rashes Wounds: no wounds Neuro: General: patient oriented x3, moves all extremities and no meningeal signs Other: right sided weakness (old) Extrem: General: no clubbing, cyanosis or edema Psych: Mental Status: mental status grossly normal Affect: normal affect Attitude: cooperative Course Vital Signs Vital signs: Vital Signs Temperature 97.2 F L 12/17/24 16:30 Pulse Rate 87 12/17/24 16:30 Respiratory Rate 20 12/17/24 16:30 Blood Pressure 127/99 H 12/17/24 16:30 Pulse Oximetry 96 12/17/24 16:30 Oxygen Delivery Room Air 12/17/24 16:30 Temperature 97.2 F L 12/17/24 16:30 Pulse Rate 84 12/17/24 17:46 Respiratory Rate 15 12/17/24 17:15 Blood Pressure 105/67 12/17/24 17:46 Pulse Oximetry 95 12/17/24 17:46 Oxygen Delivery Room Air 12/17/24 17:01 MDM - Chest Pain MDM Narrative Medical decision making narrative: Pt has chest tightness in lower anterior chest near epigastric area. Pt has no abdominal or chest tenderness on palpation. ekg no stemi. will get trop and labs and lipase to rule out acs and any GI causes. will likely CT abd and pelvis to rule out AAA since has history. Pt says he wants to go home. work up so far is neg but only have first trop and since cp just started prior to arrival pt needs a 3 hr trop to rule out acs and he refuses to staty for that. Pt also did not wait for CTA of chest abd/pelvis to rule out AAA. Pt understands risk including heart attack and and AAA rupture and is capable of making an informed decision. he will sign out ama. Differential Diagnosis Differential diagnosis: Likely unstable angina pectoris, atypical chest pain, st elevation myocardial infarction, chest pain and biliary colic Lab Data 12/17/24 16:54 12/17/24 16:54 Labs: Lab Results 12/17/24 Range/Units 16:54 WBC 8.0 (4.8-10.8) K/mm3 RBC 4.45 L (4.70-6.10) M/mm3 Hgb 14.3 (14.0-18.0) g/dL Hct 40.8 (40.0-54.0) % MCV 91.7 (78.0-102.0) fL MCH 32.1 H (27.0-31.0) pg MCHC 35.0 (32-36) g/dL RDW 12.5 (11.6-14.4) % Plt Count 214 (150-420) K/mm3 MPV 9.2 (8.7-11.0) fl Immature Gran % (Auto) 0.4 H (0.0-0.0) % Neut % (Auto) 69.6 (50.0-70.0) % Lymph % (Auto) 22.9 (18.0-42.0) % [place] % (Auto) 6.4 (2.0-11.0) % Eos % (Auto) 0.4 L (1.0-6.0) % Baso % (Auto) 0.3 (0.0-1.0) % Lymph # (Auto) 1.83 (1.10-4.50) K/mm3 [place] # (Auto) 0.51 (0.10-0.90) K/mm3 Eos # (Auto) 0.03 (0.02-0.50) K/mm3 Baso # (Auto) 0.02 (0.00-0.10) K/mm3 Abs Immat Gran (auto) 0.03 H (0.00-0.00) K/mm3 Absolute Neuts (auto) 5.57 (1.70-7.20) K/mm3 Absolute Nucleated RBC 0.00 (0.00-0.00) K/mm3 Nucleated RBC % 0.0 (0-0.0) % PT 10.9 (9.50-12.1) Seconds INR 1.0 APTT 25.0 (23.9-30.70) Sec Sodium 141 (137-145) mmol/L Potassium 3.8 (3.4-5.0) mmol/L Chloride 103 (98-107) mmol/L Carbon Dioxide 31 H (22-30) mmol/L Anion Gap 7 (4-12) mmol/L BUN 24 H (9-20) mg/dL Creatinine 1.57 H (0.7-1.3) mg/dL Estim Creat Clear Calc 41 ml/min Estimated GFR 45 L (59 - ) Glucose 127 H (65-110) mg/dL Calculated Osmolality 298 H (285-295) mOsm/kg Calcium 10.3 H (8.4-10.2) mg/dL Total Bilirubin 0.5 (0.2-1.3) mg/dL AST 33 (17-59) U/L ALT 24 (6-50) U/L Alkaline Phosphatase 52 (38-126) U/L Troponin I < 0.012 (0.000-0.034) ng/mL NT-Pro-B Natriuret Pep 88 (19.9-100) pg/mL Total Protein 8.0 (6.3-8.2) g/dL Albumin 5.0 (3.5-5.1) g/dL Lipase 83 (23-300) U/L ECG Data EKG #1: Interpretation: nsr with 1st degree av block, indeterminate age septal [place], rate 86, no acute st or t wave changes Discharge Plan Discharge Clinical Impression: Chest pain Patient Disposition: Left Against Medical Advice Condition: Improved Instructions: Chest Pain (ED) Patient Language: Italian Prescriptions: No Action atenolol 100 mg tablet 1 tablet PO DAILY clopidogrel 75 mg tablet 1 tablet PO DAILY triamcinolone acetonide 0.1 % cream 1 applic TOPICAL BID alprazolam 0.5 mg tablet 1 tablet PO TID PRN (Reason: Anxiety) hydrocodone-acetaminophen 7.5-325 mg tablet 1 - 2 tablet PO Q4-6H PRN (Reason: Pain) pantoprazole 40 mg tablet,delayed release (DR/EC) 1 tablet PO DAILY minoxidil 10 mg tablet 2 tablet PO BID allopurinol 300 mg tablet 1 tablet PO DAILY hydrochlorothiazide 25 mg tablet 1 tablet PO DAILY cholecalciferol (vitamin D3) 25 mcg (1,000 unit) Capsule 25 mcg PO BID rosuvastatin 20 mg tablet 1 tablet PO HS Advair Diskus 1 puff PO BID sildenafil 100 mg Tablet 100 mg PO DAILY PRN (Reason: erectile disfunction) Rx Instructions: administer 30 minutes to 4 hours before activity carbamazepine 400 mg Tablet Extended Release 12 Hr 400 mg PO BID nortriptyline 50 mg Capsule 100 mg PO HS cyanocobalamin (vitamin B-12) 2,000 mcg Tablet 2,500 mcg PO DAILY oxycodone 80 mg Tablet,Oral Only,Ext.Rel.12 Hr 80 mg PO Q12H duloxetine 30 mg Capsule, Delayed Rel Sprinkle 30 mg PO BID Follow-up/Referrals: Jamil Villavicencio MD [Primary Care Provider] - Quality HEART score for chest pain patients History: moderately suspicious ECG: non specific repolarization disturbance/LBTB/PM Age: > 45 and < 65 years Risk factors: > or = to 3 risk factors of atherosclerotic disease Troponin: < or = to 1x normal limit Heart score: 5
--- NOTE | 2024-12-17 16:43 | ECG_ITS ---
Test Date: 2024-12-17 16:37:54 Measurements Intervals [place] Rate: 83 P: 0 IA: 218 QRS: 29 QRSD: 88 T: 12 QT: 383 QTc: 452 Interpretive Statements SINUS RHYTHM WITH FIRST DEGREE AV BLOCK ANTERIOR INFARCT, AGE INDETERMINATE BORDERLINE ST-T WAVE ABNORMALITY- INFERIOR LEADS BASELINE ARTIFACT- I, II, III, AVR, AVL, AVF, V1-V6 ABNORMAL ECG No previous ECG available for comparison Electronically Signed On 12-17-2024 16:48:40 CDT by Vineet Rascon D.O.
--- NOTE | 2024-12-17 16:45 | ECG_ITS ---
Test Date: 2024-12-17 16:45:09 Measurements Intervals [place] Rate: 86 P: 7 SD: 215 QRS: 41 QRSD: 96 T: 3 QT: 388 QTc: 465 Interpretive Statements SINUS RHYTHM WITH FIRST DEGREE AV BLOCK INCOMPLETE RIGHT BUNDLE BRANCH BLOCK CANNOT R/O SEPTAL INFARCT, AGE INDETERMINATE BORDERLINE ST-T WAVE ABNORMALITY- INFERIOR LEADS BASELINE ARTIFACT- I, II, III, AVR, AVL, AVF, V1 ABNORMAL ECG Compared to ECG 12/17/2024 16:37:54 No significant changes Electronically Signed On 12-18-2024 08:36:06 CDT by Vineet Rascon D.O.
--- NOTE | 2024-12-17 16:47 | PC.NURSE ---
1637 ekg completed, printed acute mi. dr rao reviewed. objected printed reading as no acute mi, requested ekg repeated. 1645 ekg repeated, reviewed per dr rao.
[2024-12-17 16:58] LABS: Hematocrit 40.8 % (40.0-54.0); Hemoglobin 14.3 g/dL (14.0-18.0); Immature Granulocyte Percent A 0.4 % (0.0-0.0); Lymphocytes Absolute Auto 1.83 K/mm3 (1.10-4.50); Mean Corpuscular HGB Conc 35.0 g/dL (32-36); Mean Corpuscular Hemoglobin 32.1 pg (27.0-31.0); Mean Corpuscular Volume 91.7 fL (78.0-102.0); Nucleated Red Blood Cells Absolute Auto 0.00 K/mm3 (0.00-0.00); Nucleated Red Blood Cells Perc 0.0 % (0-0.0); Platelet Count Result 214 K/mm3 (150-420); Red Blood Count 4.45 M/mm3 (4.70-6.10); White Blood Count 8.0 K/mm3 (4.8-10.8)
--- OUTSIDE RECORDS SUMMARY | 2024-12-17 17:02 | XMS_ITS | Encounter Summary ---
Author Organization [facility] Address [address] [facility] [place] [address] Phone Care Team Providers Care Telegraphic Typewriter Operator Name Role Phone Jamil Villavicencio MD Primary Care Provider [phone] Maulik Campos MD Unavailable [phone] Stephen Larsen MD Unavailable Susan Russell APRN, [facility] Unavailable + [phone] Reason for Referral * Radiology Services (Routine) - Closed Specialty Diagnoses / Procedures Referred By Warren moore Referred To Contact Radiology Diagnoses Degenerative joint disease of left knee Pre-op testing Procedures XR CHEST 2 VIEWS Rojelio Brewster MD [address] [place] [address] Phone: tel: fax: Referral ID Status Reason Start Date Expiration Date Visits Re quested Visits Authorized [id number] Closed 08/30/2023 1 1 * Radiology Services (Routine) - Closed Specialty Diagnoses / Procedures Referred By Warren moore Referred To Contact Radiology Diagnoses Degenerative joint disease of left knee Pre-op testing Procedures EKG 12 LEAD Rojelio Brewster MD [address] [place] [address] Phone: tel: fax: Referral ID Status Reason Start Date Expiration Date Visits Re quested Visits Authorized [id number] Closed 08/30/2023 1 1 Encounter Details Date Type Department Care Team (Latest Contact Info) Description 08/30/2023 Transcribe Orders [facility] Preop/Pacu II [address] [place] [address] Rojelio Brewster MD [address] [place] [address] Degenerative joint disease of left knee (Primary Dx); Pre-op testing Social History Tobacco Use Types Packs/Day Years Used Date Smoking Tobacco: Former Smokeless Tobacco: Never Alcohol Use Standard Drinks/Week Comments Yes 0 (1 standard drink = 0.6 oz pur e alcohol) 2-3 times per year [facility] Utilities Answer Date Recorded In the past [...] place to sleep or slept in a mcc (including now)? No 08/05/2023 Sexually Active Control [...] Info) Description 12/19/2024 2:00 PM CDT [facility] [address] [place] [address] Provider, Not On File Evette Jimenez, AUTO HAULER, GRINDER MACHINE KNIFE SETTER [address] [address] Discharge Disposition: Discharged to home or Selfcare 01/01/2025 3:00 PM CDT Office Visit [facility] - Neurology - [address] [place] [address] Susan Russell, AUTO HAULER, FISH ROE TECHNICIAN [address] [place] [address] 03/12/2025 2:30 PM CDT Office Visit [facility] - Endocrinology - [address] [place] [address] Stephen Larsen MD [address] [address] documented as of this encounter Results * [...] Calvin Acosta M.D. AG: JACKELYN Report ID: [id number] Reading Location: [id number] Procedure Note Calvin Acosta MD - 09/13/2023 [...] Calvin Acosta M.D. AG: JACKELYN Report ID: [id number] Reading Location: [place] [address] IMPRESSION: No acute cardiopulmonary abnormality. Stable mild [...] change was found Confirmed by Dionte Bejarano ([id number]) on 09/12/2023 10:49:39 AM Narrative Procedure Note Dionte Bejarano MD - 09/12/2023 IMPRESSION: Normal sinus rhythm Septal infarct (cited on or before 09-SEP-2023) Abnormal ECG When compared with ECG of 05-AUG-2023 12:38, No significant change was found Confirmed by Dionte Bejarano ([id number]) on 09/12/2023 10:49:39 AM us Rojelio Brewster MD IMG ECG ORDERABLES Final Result EXTERNAL EKG * (ABNORMAL) CMP (COMPREHENSIVE METABOLIC PANEL) (09/09/2023 12:19 PM CDT) SODIUM 139 136 - 145 mmol/L 09/09/2023 1:39 PM CDT [facility] POTASSIUM 3.4(L) 3.5 - 5.1 mmol/L 09/09/2023 1:39 PM CDT [facility] CHLORIDE 100 98 - 107 mmol/L 09/09/2023 1:39 PM CDT [facility] CO2, VENOUS 30 22 - 30 mmol/L 09/09/2023 1:39 PM CDT [facility] ANION GAP 12.4 <18.0 mmol/L 09/09/2023 1:39 PM CDT [facility] GLUCOSE 124(H) 70 - 99 mg/dL 09/09/2023 1:39 PM CDT [facility] BUN 25 8 - 26 mg/dL 09/09/2023 1:39 PM CDT [facility] CREATININE, BLOOD 1.10 0.70 - 1.30 mg/dL 09/09/2023 1:39 PM CDT [facility] BUN/CREATININE RATIO 23(H) 12 - 20 ratio 09/09/2023 1:39 PM CDT [facility] TOTAL PROTEIN 7.9 6.3 - 8.2 g/dL 09/09/2023 1:39 PM CDT [facility] ALBUMIN 4.4 3.5 - 5.0 g/dL 09/09/2023 1:39 PM CDT [facility] A/G RATIO 1.3 1.0 - 2.2 09/09/2023 1:39 PM CDT [facility] CALCIUM 10.0 8.7 - 10.5 mg/dL 09/09/2023 1:39 PM CDT [facility] T BILI 0.3 0.2 - 1.2 mg/dL 09/09/2023 1:39 PM CDT [facility] SGOT (AST) 26 5 - 34 U/L 09/09/2023 1:39 PM T [facility] SGPT (ALT) 42 0 - 55 U/L 09/09/2023 1:39 PM T [facility] ALKALINE PHOSPHATASE 57 40 - 150 U/L 09/09/2023 1:39 PM T [facility] IS THE PATIENT REQUIRED TO BE FASTING? No 09/09/2023 1:39 PM CDT [facility] GFR, ESTIMATED >60 >=60 09/09/2023 1:39 PM CDT [facility] Comment: Creatinine Clearance is the preferred criteria for selecting drug dose adjustments in renally impaired patients. The GFR is provided as additional pertinent clinical information. GFR is reported in mL/min/1.73 sq m. Calculation based on the Chronic Kidney Disease Epidemiology Collaboration (CKD- EPI) equation refit without adjustment for race. GFR, EST. >60 >=60 024 1:39 PM CDT [facility] GFR, EST. NONAFRICAN >60 >=60 09/09/2023 1:39 PM T [facility] Blood Venipuncture / Unknown 09/09/2023 12:19 PM CDT 09/09/2023 1:10 PM CDT us Rojelio Brewster MD CHEMISTRY ORDERABLES Final Resul t [facility] [address] [place] [address] documented in this encounter Visit Diagnoses Diagnosis [...] unspecified documented in this encounter Care Teams Telegraphic Typewriter Operator Relationship Specialty Start Date End Date Jamil Villavicencio MD [address] [place] [address] PCP - General Pediatrics 04/03/15 Maulik Campos MD [address] [place] [phone] Consulting Physician Neurology 01/28/22 Stephen Larsen MD [address] [phone] Consulting Physician Endocrinology 09/30/23 Susan Russell APRN, FISH ROE TECHNICIAN [address] [place] [address] Nurse Practitioner Advanced Practice Nurse 08/27/24 documented as of this encounter
--- OUTSIDE RECORDS SUMMARY | 2024-12-17 17:02 | XMS_ITS | Referral Summary ---
Author Organization [facility] Address [address] [place] [address] Care Team Providers Care Refining Machine Operator Name Role Phone Jamil Villavicencio MD Primary Care Provide r Jamil Villavicencio MD Unavailable Sami Grossman MD Unavailable [phone] Allergies Active Allergy Reactions Criticality Noted Date [...] (10/26/2021): Added automatically from request for surgery [id number] Erectile dysfunction due to diseases classified elsewhere 07/10/2019 Assessment & Plan (07/10/2019 1:57 PM CHILD DEVELOPMENT INSTRUCTOR): Rx for Sildenafil sent Nocturia 07/11/2018 Assessment & Plan (07/10/2019 1:55 PM CHILD DEVELOPMENT INSTRUCTOR): Check PSA Anemia due to vitamin B12 deficiency 08/10/2017 Hypogonadism, male 12/15/2016 Assessment & Plan (07/10/2019 1:55 PM CHILD DEVELOPMENT INSTRUCTOR): Continue T replacement Assessment & Plan (01/09/2019 4:19 PM CDT): Continue T replacement rx sent. Assessment & Plan (07/11/2018 1:24 PM CHILD DEVELOPMENT INSTRUCTOR): Restart T replacement Check CBC, PSA Assessment & Plan (12/27/2017 2:02 PM CDT): Continue T replacement Check psa, cbc Assessment & Plan (06/20/2017 8:39 PM CHILD DEVELOPMENT INSTRUCTOR): Stop topical T Start depot T Assessment [...] on file Legal Sex Male 9:29 AM CHILD DEVELOPMENT INSTRUCTOR Gender Identity Not on file Sexual Orientation Not on file Last Filed Vital Signs Vital Sign Reading Time Taken Comments Blood Pressure 106/71 08/19/2023 1:03 PM CDT Pulse 84 08/19/2023 1:03 PM CDT Temperature 36.8 C (98.2 F) 07/17/2023 10:58 AM CHILD DEVELOPMENT INSTRUCTOR Respiratory Rate 18 07/17/2023 10:58 AM CHILD DEVELOPMENT INSTRUCTOR Oxygen Saturation 96% 07/17/2023 10:58 AM CHILD DEVELOPMENT INSTRUCTOR Inhaled Oxygen Concentration - - Weight 93 kg (205 lb) 08/19/2023 1:03 PM CDT Height 160 cm (5' 3) 08/19/2023 1:03 PM CDT Body Mass Index 36.31 08/19/2023 1:03 PM CDT Plan of Treatment Not on file Procedures Procedure Name Priority Date/Time Associated Diagnosis Comments EGFR STAT 07/17/2023 12:09 PM CHILD DEVELOPMENT INSTRUCTOR LIPID PANEL Routine 12/25/2021 5:08 AM CDT COLONOSCOPY 10/26/2021 2:39 PM CDT PSA SCREEN Routine 07/16/2019 12:58 PM CHILD DEVELOPMENT INSTRUCTOR Nocturia from Last 3 Months or Most Recently Relevant to Health Maintenance Results * eGFR (07/17/2023 12:09 PM CHILD DEVELOPMENT INSTRUCTOR) eGFR 74 mL/min/1. 73 m2 [facility] [...] reviewed 2021. Blood 07/17/2023 12:0 9 PM CHILD DEVELOPMENT INSTRUCTOR 07/17/2023 12:18 PM CHILD DEVELOPMENT INSTRUCTOR us Flako Cagle MD LAB BLOOD ORDERABLES Final Result Performing Organization Address City/State/[facility] Co de Phone Number [facility] 1 [facility] [place] [address] * Lipid panel (12/25/2021 5:08 AM CDT) [...] on 2018. HDL 42 >=40 mg/dL [facility] Comment: Interpretive Data Ages < or = [...] 2018. LDL, calculated 69 <=129 mg/dL [facility] Comment: Interpretive Data Ages < or = [...] on 2018. Non-HDL Cholesterol 95 mg/dL [facility] Comment: Interpretive Data Ages < or = [...] last revised on 2018. Chol/HDL [facility] 3 [facility] Blood 12/25/2021 5:08 AM CDT 12/25/2021 5:29 AM CDT us Elisa Fauts MD LAB BLOOD ORDERABLES F inal Result [facility] One [facility] Department [place] [address] * COLONOSCOPY (10/26/2021 2:39 PM CDT) Anatomical Region Laterality Modality Other Narrative Procedure Note Sami Grossman MD - 10/26/2021 2:39 PM CDT [facility] Patient Name: Bar Young Procedure Date: 10/26/2021 2:39 PM Date of : 1965 Admit Type: Inpatient Age: 56 Gender: Male Attending MD: Sami Grossman M.D. Room: [facility] ENDOSCOPY ROOM 1 Note Status: Finalized Patient [...] under direct vision. The Pediatric Colonoscope PCF-H190L [id number] was introduced through the anus andadvanced to [...] 2:39 PM Procedure Code(s): --- Professional --- 15229, Colonoscopy, flexible; with removal of tumor(s), polyp(s), or other lesion(s) by snare technique 66157, 59, Colonoscopy, flexible; with biopsy, single or multiple Diagnosis Code(s): --- Professional --- K64.8, Other hemorrhoids D12.0, Benign neoplasm of cecum D12.4, Benign neoplasm of descending colon D12.8, Benign neoplasm of rectum R10.31, Right lower quadrant pain CPT copyright 2020 [employer]. All rights reserved. The codes documented in this report are preliminary and upon electrical mechanical technician reviewmay be revised to meet current compliance requirements. Recognized by the [place] for promoting quality in endoscopy us Sami Grossman MD ENDOSCOPY PROCEDURES Final Result * PSA screen (07/16/2019 12:58 PM CHILD DEVELOPMENT INSTRUCTOR) PSA 0.9 < OR = 4.0 ng/mL [facility] Comment: The total PSA value from this assay system is standardized against the WHO standard. The test result will be approximately 20% lower when compared to the equimolar-standardized total PSA (Lois [place]). Comparison of serial PSA results should be interpreted with this fact in mind. This test was performed using the Siemens chemiluminescent method. Values obtained from different assay methods cannot be used interchangeably. PSA levels, regardless of value, should not be interpreted as absolute evidence of the presence or absence of disease. Blood specimen (specimen) 07/16/2019 12:58 PM CHILD DEVELOPMENT INSTRUCTOR 07/16/2019 12:59 PM CHILD DEVELOPMENT INSTRUCTOR Narrative [facility] - 07/17/2019 6:07 AM CHILD DEVELOPMENT INSTRUCTOR FASTING:NO FASTING: NO Resulting Agency Comment Performing Organization Information: Site ID: [id number] Name: [facility] Simpson Address: [address] [place] [address] Director: Paco Gutierres D.O., MPH us Andi Rudd MD LAB BLOOD ORDERABLES Final Resul t [facility] Shelley from Last 3 Months or Most Recently Relevant to Health Maintenance Insurance MEDICARE [facility] MEDICARE [facility] MEDICARE ID[place] Advance Directives For more information, please contact: [phone] * Full Code (Latest Code Status on File) Date Activated Date Inactivated Comments 12/25/2021 1:48 AM 01/22/2022 3:28 PM * Full Code Date Activated Date Inactivated Comments 10/26/2021 1:55 PM 10/26/2021 10:32 PM * Full Code Date Activated Date Inactivated Comments 10/24/2021 8:01 AM 10/26/2021 1:55 PM * Full Code Date Activated Date Inactivated Comments 10/23/2021 5:30 AM 10/24/2021 8:01 AM Care Teams Refining Machine Operator Relationship Specialty Start Date End Date Jamil Villavicencio MD [address] [place] [address] PCP - General 10/19/16 Jamil Villavicencio MD [address] [place] [address] 10/19/16 Sami Grossman MD [address] [place] [address] Consulting Physician Gastroenterology 10/26/21
--- OUTSIDE RECORDS SUMMARY | 2024-12-17 17:02 | XMS_ITS | Clinical Summary ---
Author Organization [facility] Address [address] [place] [address] Care Team Providers Care Retail Loss Prevention Investigator Name Role Phone Jamil Villavicencio MD Primary Care Provide r Jamil Villavicencio MD Unavailable Sami Grossman MD Unavailable [phone] Allergies Active Allergy Reactions Criticality Noted Date [...] (10/26/2021): Added automatically from request for surgery [id number] Erectile dysfunction due to diseases classified elsewhere 07/10/2019 Assessment & Plan (07/10/2019 1:57 PM HEALTH AND HUMAN PERFORMANCE PROFESSOR): Rx for Sildenafil sent Nocturia 07/11/2018 Assessment & Plan (07/10/2019 1:55 PM HEALTH AND HUMAN PERFORMANCE PROFESSOR): Check PSA Anemia due to vitamin B12 deficiency 08/10/2017 Hypogonadism, male 12/15/2016 Assessment & Plan (07/10/2019 1:55 PM HEALTH AND HUMAN PERFORMANCE PROFESSOR): Continue T replacement Assessment & Plan (01/09/2019 4:19 PM CDT): Continue T replacement rx sent. Assessment & Plan (07/11/2018 1:24 PM HEALTH AND HUMAN PERFORMANCE PROFESSOR): Restart T replacement Check CBC, PSA Assessment & Plan (12/27/2017 2:02 PM CDT): Continue T replacement Check psa, cbc Assessment & Plan (06/20/2017 8:39 PM HEALTH AND HUMAN PERFORMANCE PROFESSOR): Stop topical T Start depot T Assessment [...] on file Legal Sex Male 9:29 AM HEALTH AND HUMAN PERFORMANCE PROFESSOR Gender Identity Not on file Sexual Orientation Not on file Obstetrics History Last Filed Vital Signs Vital Sign Reading Time Taken Comments Blood Pressure 106/71 08/19/2023 1:03 PM CDT Pulse 84 08/19/2023 1:03 PM CDT Temperature 36.8 C (98.2 F) 07/17/2023 10:58 AM HEALTH AND HUMAN PERFORMANCE PROFESSOR Respiratory Rate 18 07/17/2023 10:58 AM HEALTH AND HUMAN PERFORMANCE PROFESSOR Oxygen Saturation 96% 07/17/2023 10:58 AM HEALTH AND HUMAN PERFORMANCE PROFESSOR Inhaled Oxygen Concentration - - Weight 93 [...] Diagnosis Comments EGFR STAT 07/17/2023 12:09 PM HEALTH AND HUMAN PERFORMANCE PROFESSOR LIPID PANEL Routine 12/25/2021 5:08 AM CDT COLONOSCOPY 10/26/2021 2:39 PM CDT PSA SCREEN Routine 07/16/2019 12:58 PM HEALTH AND HUMAN PERFORMANCE PROFESSOR Nocturia from Last 3 Months or Most Recently Relevant to Health Maintenance Results * eGFR (07/17/2023 12:09 PM HEALTH AND HUMAN PERFORMANCE PROFESSOR) eGFR 74 mL/min/1. 73 m2 [facility] [...] reviewed 2021. Blood 07/17/2023 12:0 9 PM HEALTH AND HUMAN PERFORMANCE PROFESSOR 07/17/2023 12:18 PM HEALTH AND HUMAN PERFORMANCE PROFESSOR us Flako Cagle MD LAB BLOOD ORDERABLES Final Result Performing Organization Address City/State/[facility] Co de Phone Number [facility] 1 [facility] Department [place] [address] * Lipid panel (12/25/2021 5:08 AM CDT) [...] on 2018. HDL 42 >=40 mg/dL [facility] Comment: Interpretive Data Ages < or = [...] 2018. LDL, calculated 69 <=129 mg/dL [facility] Comment: Interpretive Data Ages < or = [...] on 2018. Non-HDL Cholesterol 95 mg/dL [facility] Comment: Interpretive Data Ages < or = [...] last revised on 2018. Chol/HDL ratio [address] [facility] Blood 12/25/2021 5:08 AM CDT 12/25/2021 5:29 AM CDT us Elisa Faust MD LAB BLOOD ORDERABLES F inal Result [facility] One [facility] Department [place] [address] * COLONOSCOPY (10/26/2021 2:39 PM CDT) Anatomical Region Laterality Modality Other Narrative Procedure Note Sami Grossman MD - 10/26/2021 2:39 PM CDT [facility] Patient Name: Bar Young Procedure Date: 10/26/2021 2:39 PM Date of : 1965 Admit Type: Inpatient Age: 56 Gender: Male Attending MD: Sami Grossman M.D. Room: [facility] ENDOSCOPY ROOM 1 Note Status: Finalized Patient [...] under direct vision. The Pediatric Colonoscope PCF-H190L [id number] was introduced through the anus andadvanced to [...] 2:39 PM Procedure Code(s): --- Professional --- 16547, Colonoscopy, flexible; with removal of tumor(s), polyp(s), or other lesion(s) by snare technique 52322, 59, Colonoscopy, flexible; with biopsy, single or multiple Diagnosis Code(s): --- Professional --- K64.8, Other hemorrhoids D12.0, Benign neoplasm of cecum D12.4, Benign neoplasm of descending colon D12.8, Benign neoplasm of rectum R10.31, Right lower quadrant pain CPT copyright 2020 [place]. All rights reserved. The codes documented in this report are preliminary and upon clinical abstractor reviewmay be revised to meet current compliance requirements. Recognized by the [place] [employer] for promoting quality in endoscopy us Sami Grossman MD ENDOSCOPY PROCEDURES Final Result * PSA screen (07/16/2019 12:58 PM HEALTH AND HUMAN PERFORMANCE PROFESSOR) PSA 0.9 < OR = 4.0 ng/mL [facility] Comment: The total PSA value from this assay system is standardized against the WHO standard. The test result will be approximately 20% lower when compared to the equimolar-standardized total PSA (Lois [place]). Comparison of serial PSA results should be interpreted with this fact in mind. This test was performed using the Siemens chemiluminescent method. Values obtained from different assay methods cannot be used interchangeably. PSA levels, regardless of value, should not be interpreted as absolute evidence of the presence or absence of disease. Blood specimen (specimen) 07/16/2019 12:58 PM HEALTH AND HUMAN PERFORMANCE PROFESSOR 07/16/2019 12:59 PM HEALTH AND HUMAN PERFORMANCE PROFESSOR Narrative [facility] - 07/17/2019 6:07 AM HEALTH AND HUMAN PERFORMANCE PROFESSOR FASTING:NO FASTING: NO Resulting Agency Comment Performing Organization Information: Site ID: [id number] Name: [facility] Address: [address] [address] Director: Paco Gutierres D.O., MPH us Andi Rudd MD LAB BLOOD ORDERABLES Final Resul t [facility] [place] [facility] from Last 3 Months or Most Recently Relevant to Health Maintenance Insurance MEDICARE [employer]AR MEDICARE [facility] MEDICARE IDPA Advance Directives For more information, please contact: [phone] * Full Code (Latest Code Status on File) Date Activated Date Inactivated Comments 12/25/2021 1:48 AM 01/22/2022 3:28 PM * Full Code Date Activated Date Inactivated Comments 10/26/2021 1:55 PM 10/26/2021 10:32 PM * Full Code Date Activated Date Inactivated Comments 10/24/2021 8:01 AM 10/26/2021 1:55 PM * Full Code Date Activated Date Inactivated Comments 10/23/2021 5:30 AM 10/24/2021 8:01 AM Care Teams Retail Loss Prevention Investigator Relationship Specialty Start Date End Date Jamil Villavicencio MD [address] [place] [address] PCP - General 10/19/16 Jamil Villavicencio MD [address] [place] [address] 10/19/16 Sami Grossman MD [address] [place] [address] Consulting Physician Gastroenterology 10/26/21
--- OUTSIDE RECORDS SUMMARY | 2024-12-17 17:02 | XMS_ITS | Clinical Summary ---
Author Organization [facility] Address [address] [place] [address] Care Team Providers Care Pipeman Name Role Phone Unavailable Primary Care Provider [...]
--- OUTSIDE RECORDS SUMMARY | 2024-12-17 17:03 | XMS_ITS | Clinical Summary ---
Author Organization [facility] Address [address] [place] [address] Phone Care Team Providers Care Mold Yard Worker Name Role Phone Jamil Villavicencio MD Primary Care Provider [phone] Maulik Campos MD Unavailable [phone] Stephen Larsen MD Unavailable Susan Russell APRN, PEPPER PICKER Unavailable + [phone] Allergies Active Allergy Reactions Criticality Noted Date [...] (Narcan) 4 MG/0.1ML LiquidIndications:Op ioid Overdose 1 [place] by Nasal route as needed for Opioid [...] 30 Tablet 09/23/19 24 Active HYDROcodone-acetamin ophen (Cord) 7.5-325 MG TabletIndications:Pa in Take 1 Tablet [...] - 12/04/2024 11:59 PM CDT Hospital Encounter [facility] MRI [address] [place] [address] Jamil Villavicencio MD Discharge Disposition: Discharged to home or Selfcare 12/04/2024 Travel 11/08/2024 Transcribe Orders [facility] Central Scheduling [address] [place] [address] Jamil Villavicencio MD Intractable headache, unspecified chronicity pattern, unspecified headache type (Primary Dx) 10/25/2024 Results Follow-Up [facility] - Neurology [facility] [address] [place] [address] Susan Russell APRN, PEPPER PICKER CT ANGIO HEAD AND NECK WWO CONTRAST W PP 10/24/2024 Transcribe Orders [facility] Central Scheduling [address] [place] [address] Provider, Not On File Bilateral carpal tunnel syndrome (Primary Dx) 10/17/2024 2:36 PM CDT - 10/17/2024 11:59 PM CDT [facility] [address] [place] [address] Susan Russell APRN, PEPPER PICKER Discharge Disposition: Discharged to home or Selfcare 10/17/2024 Travel 10/02/2024 4:30 PM CDT Office Visit [facility] Neurology [facility] [address] [place] [address] Susan Russell APRN, PEPPER PICKER Hemiplegia and hemiparesis following cerebral infarction affecting [...] = 0.6 oz pur e alcohol) [facility] Utilities Answer Date Recorded In the past [...] declined 09/22/2023 How often do you attend shinto or islam serv ices? Patient declined 09/22/2023 Do you belong to any clubs o r organizations such as shinto groups, unions, fraternal or athletic groups, or [...] medical care, and heating? Patient declined 09/22/2023 [facility] Occupat ional Health - Occupational Stress [...] place to sleep or slept in a jail (including now)? Patient declined 09/22/2023 Sexually Active [...] 12/19/2024 2:00 PM CDT [facility] [address] [place] [address] Provider, Not On File [place] Evette Mendoza, TABLEAU ADMINISTRATOR, TANNING WHEEL FILLER [address] [address] Discharge Disposition: Discharged to home or Selfcare 01/01/2025 3:00 PM CDT [facility] [place] [address] [place] [address] Susan Russell, TABLEAU ADMINISTRATOR, PEPPER PICKER [address] [place] [address] 03/12/2025 2:30 PM CDT [facility] - Endocrinology - [place] [address] [place] [address] Stephen Larsen MD [address] [address] Health Maintenance Due Date Last [...] this topic Medical Devices Implanted Type Area Sight Effects Specialist Device Identifier Shelf Expiration Date Model / Serial / Lot Cement Bone Orthoset 1 40gm - [id number] Implanted:Qty: 1 on 09/22/2023 by Rojelio Brewster MD at [facility] IMPLANT Left: Knee [employer] 08/13/2024 DEGENERATIVE JOINT DISEASE, LEFT KNEE / DEGENERATIVE JOINT DISEASE, LEFT KNEE / [id number] Component Patellar High Dome 9mm 28mm Recessed Advance All Poly - [id number] Implanted:Qty: 1 on 09/22/2023 by Rojelio Brewster MD at [facility] IMPLANT Left: Knee [employer] 04/03/2030 [id number] / [id number] / [id number] Insert Evolution Mp Tib Keeled Nonpor Size 5 Standard Left - [id number] Implanted:Qty: 1 on 09/22/2023 by Rojelio Brewster MD at [facility] IMPLANT Left: Knee [employer] 08/18/2031 [id number] / [id number] / [id number] Insert Evolution Mp Fem Cs/Cr Porous - [id number] Implanted:Qty: 1 on 09/22/2023 by Rojelio Brewster MD at [facility] IMPLANT Left: Knee [employer] 09/01/2031 [id number] / [id number] / [id number] Liner Tibial Evolution Mp Size 5 Standard 10mm Thk Left Femur Cruciate Substituting Polyethylene - [id number] Implanted:Qty: 1 on 09/22/2023 by Rojelio Brewster MD at [facility] IMPLANT Left: Knee [employer] 06/24/2031 [id number] / [id number] / [id number] Procedures Procedure Name Priority Date/Time Associated Diagnosis [...] Mathew Rodríguez M.D. MM: MM Report ID: [id number] Reading Location: [id number] Procedure Note Mathew Rodríguez MD - 12/05/2024 [...] Mathew Rodríguez M.D. MM: MM Report ID: [id number] Reading Location: [place] [address] IMPRESSION: 1. No acute intracranial abnormality. No [...] 1.3 mg/dL 12/04/2024 3:17 PM CDT [facility] Blood 12/04/2024 3:16 PM CDT 12/04/2024 3:17 PM CDT us None Provider POINT OF CARE TESTING Final Resu lt [facility] [address] [place] [address] * CT ANGIO HEAD AND NECK WWO [...] with mild narrowing and supraclinoid segment with ykhz-rs-tkibeeir narrowing. Left internal carotid artery petrous segment is patent. Calcified plaque at the cavernous segment without significant stenosis. Calcified plaque at the supraclinoid segment with dgdp-ru-rckpokfh narrowing. The right anterior and middle cerebral artery proximal branches are patent. The left anterior and middle cerebral artery proximal branches are patent. Non dominant right vertebral artery V4 segment is not contrast filled, similar when compared to the earliest available CT angiogram dated 12/24/2021. Dominant left vertebral artery V4 segment multifocal mixed plaque and mphs-ir-hyrajaww narrowing. Proximal basilar artery small contrast filled [...] Eddy Torre D.O. AP: MEGAN Report ID: [id number] Reading Location: [id number] Procedure Note Eddy Torre DO - 10/18/2024 [...] with mild narrowing and supraclinoid segment with illp-ma-ovsriskw narrowing. Left internal carotid artery petrous segment is patent. Calcified plaque at the cavernous segment without significant stenosis. Calcified plaque at the supraclinoid segment with fqib-on-gbbrcrsi narrowing. The right anterior and middle cerebral artery proximal branches are patent. The left anterior and middle cerebral artery proximal branches are patent. Non dominant right vertebral artery V4 segment is not contrast filled, similar when compared to the earliest available CT angiogram dated 12/24/2021. Dominant left vertebral artery V4 segment multifocal mixed plaque and ymlr-gj-hdukalft narrowing. Proximal basilar artery small contrast filled [...] Eddy Torre D.O. AP: MEGAN Report ID: [id number] Reading Location: [id number] IMPRESSION: BRAIN: 1. No acute intracranial hemorrhage [...] Atherosclerotic changes as above. us Susan Russell TABLEAU ADMINISTRATOR, PEPPER PICKER IMG CT ORDERABLES Fi nal Result * UR MICROALBUMIN/CREATININE RATIO RANDOM (09/10/2024 3:25 PM CDT) Pathologist [facility] RAN UR MICROALBUMIN 4.28 mg/dL 09/10/2024 6:01 PM CDT [facility] Comment:No reference range h as been established. Consider Clinical Correlation. CREATININE URINE 247.0 mg/dL 09/11/19 6:01 PM CDT [facility] Comment:No reference range h as been established. Consider Clinical Correlation. ALB/CREAT RATIO 17 0 - 30 mg/g CRE 09/10/2024 6:01 PM CDT [facility] Urine Non-Phlebotomy Collection / Unknown 09/10/2024 3:25 PM CDT 09/10/2024 4:31 PM CDT us Stephen Larsen MD URINE ORDERABLES Final Result [facility] [address] [place] [address] * POCT GLYCOSYLATED HEMOGLOBIN (09/10/2024 2:33 PM CDT) HGB-A1C 5.3 4 - 6 % Blood 09/10/2024 2:33 PM CDT Stephen Larsen MD POINT OF CARE TESTING (MANUAL) F inal Result from Last 3 Months or Most Recently Relevant to Health Maintenance Insurance MEDICAID [place] MEDICARE Advance Directives * Full Code (Latest [...] measures to stabilize the patient. Care Teams Mold Yard Worker Relationship Specialty Start Date End Date Jamil Villavicencio MD [address] [place] [address] PCP - General Pediatrics 04/03/15 Maulik Campos MD [address] [place] [address] Consulting Physician Neurology 01/28/22 Stephen Larsen MD [address] [address] Consulting Physician Endocrinology 09/30/23 Susan Russell, TABLEAU ADMINISTRATOR, PEPPER PICKER [address] [place] [address] Nurse Practitioner Advanced Practice Nurse 08/27/24
--- OUTSIDE RECORDS SUMMARY | 2024-12-17 17:03 | XMS_ITS | Encounter Summary ---
Author Organization [facility] Healthcare Address [address] [place] [address] Care Team Providers Care Hand Flatwork Finisher Name Role Phone Jamil Villavicencio MD Primary Care Provide r Jamil Villavicencio MD Unavailable [phone] Sami Grossman MD Unavailable [phone] Encounter Details Date Type Department Care Team (Late st Contact Info) Description 11/11/2021 Telephone [facility] [address] [place] [address] Maricel Bo, RT Social History Tobacco Use [...] on file Legal Sex Male 9:29 AM SOAKER Gender Identity Not on file Sexual Orientation [...] documented as of this encounter Care Teams Hand Flatwork Finisher Relationship Specialty Start Date End Date Jamil Villavicencio MD [address] [place] [address] PCP - General 10/19/16 Jamil Villavicencio MD [address] [place] [address] 10/19/16 Sami Grossman MD [address] [place] [address] Consulting Physician Gastroenterology 10/26/21 documented as of this encounter
--- OUTSIDE RECORDS SUMMARY | 2024-12-17 17:03 | XMS_ITS | Encounter Summary ---
Author Organization [facility] Address [address] [place] [address] Phone Care Team Providers Care Kiosk Sales Representative Name Role Phone Jamil Villavicencio MD Primary Care Provider [phone] Maulik Campos MD Unavailable [phone] Stephen Larsen MD Unavailable Susan Russell APRN, CLAIMS ANALYST Unavailable + [phone] Encounter Details Date Type Department Care Team (Latest Contact Info) Description 09/12/2023 Transcribe Orders [facility] Preop/Pacu II [address] [place] [address] Rojelio Brewster MD [address] [place], [place] [id number] Pre-op testing (Primary Dx) Social History Tobacco Use Types Packs/Day Years Used Date Smoking Tobacco: Former Cigarettes Smokeless Tobacco: Never Comments:QUIT IN HIGH SCHOOL Alcohol Use Standard Drinks/Week Comments Yes 0 (1 standard drink = 0.6 oz pur e alcohol) RARELY [facility] Utilities Answer Date Recorded In the past 12 months has [employer], gas, oil, or water [employer] threatened to shut off services in your [...] or slept in a half-way (including now)? No 08/05/2023 Sexually Active Control [...] Info) Description 12/19/2024 2:00 PM CDT EMG [facility] Neurosciences [facility] [address] [place] [address] Provider, Not On File Evette Jimenez APRN, PREPARED FOODS ASSOCIATE [address] [place] [address] Discharge Disposition: Discharged to home or Selfcare 01/01/2025 3:00 PM CDT Office Visit [facility] - Neurology - [address] [place] [address] Susan Russell APRN, CLAIMS ANALYST [address] [place] [address] 03/12/2025 2:30 PM CDT Office Visit [facility] - Endocrinology - [place] [address] [place] [address] Stephen Larsen MD [address] [phone] documented as of this encounter Results * TYPE & SCREEN (CROSSMATCH CONVERTIBLE) (09/19/2023 2:35 PM CDT) ABO TYPING A 09/19/2023 4:42 PM CDT [facility] RH Positive 09/19/2023 4:42 PM CDT [facility] ABSC Negative 09/19/2023 4:42 PM CDT [facility] Blood Venipuncture / Unknown 09/19/2023 2:35 PM CDT 09/19/2023 3:45 PM CDT Rojelio Brewster MD BLOOD BANK ORDERABLES Edited Res ult - Final [facility] [address] [place] [address] documented in this encounter Visit Diagnoses Diagnosis Pre-op testing- Primary Preoperative examination, unspecified documented in this encounter Care Teams Kiosk Sales Representative Relationship Specialty Start Date End Date Jamil Villavicencio MD [address] [place] [address] PCP - General Pediatrics 04/03/15 Maulik Campos MD [address] [place] [address] Consulting Physician Neurology 01/28/22 Stephen Larsen MD [address] [phone] Consulting Physician Endocrinology 09/30/23 Susan Russell APRN, CLAIMS ANALYST [address] [place] [address] Nurse Practitioner Advanced Practice Nurse 08/27/24 documented as of this encounter
[2024-12-17] MEDS: ASPIRIN 81 MG CHEWABLE TABLET 324 MG PO (17:04)
[2024-12-17] MEDS: ONDANSETRON INJ 4 MG/2 ML VIAL IV PUSH (17:06)
[2024-12-17] MEDS: MORPHINE SULFATE (*CRX) 4 MG/ML INJ IV PUSH (17:06)
[2024-12-17 17:10] LABS: Alanine Aminotransferase 24 U/L (6-50); Albumin Level 5.0 g/dL (3.5-5.1); Alkaline Phosphatase 52 U/L (38-126); Anion Gap 7 mmol/L (4-12); Aspartate Amino Transferase 33 U/L (17-59); Bilirubin,Total 0.5 mg/dL (0.2-1.3); Blood Urea Nitrogen 24 mg/dL (9-20); Calcium 10.3 mg/dL (8.4-10.2); Carbon Dioxide 31 mmol/L (22-30); Chloride 103 mmol/L (98-107); Estimated CRCL calculation 41 ml/min; Estimated Glomerular Filt Rate 45; Glucose 127 mg/dL (65-110); Lipase 83 U/L (23-300); Osmolality Calculated 298 mOsm/kg (285-295); Potassium 3.8 mmol/L (3.4-5.0); Sodium 141 mmol/L (137-145); Total Protein 8.0 g/dL (6.3-8.2)
[2024-12-17 17:16] LABS: INR 1.0; Partial Thromboplastin Time 25.0 Sec (23.9-30.70); Prothrombin Time 10.9 Seconds (9.50-12.1)
[2024-12-17 17:21] LABS: NT Pro B Type Natriuretic Pept 88 pg/mL (19.9-100); Troponin I < 0.012 ng/mL (0.000-0.034)
== END 2024-12-17 18:00 | disposition left against medical advice (07) ==
PROVIDERS: Emergency Provider Emergency Medicine; PCP Family Medicine
DX: R07.9 Chest pain, unspecified (principal)
CPT/HCPCS: 36415; 80053; 83690; 83880; 84484; 85025; 85610; 85730; 93005; 96374; 96375; 99284; A9270; J2270; J2405